=== PATIENT | female | born 1985 | race Hispanic/Latino ===

== ENCOUNTER 2017-10-24 16:56 | Emergency (ER) | payer OTHER, SELFPAY ==
--- NOTE | 2017-10-24 19:01 | RAD REPORT ---
EXAM DESCRIPTION: RAD - Foot Left 3 View - 10/24/2017 5:58 pm CLINICAL HISTORY: Left Foot pain status post injury FINDINGS: A comminuted markedly displaced fracture involves the navicular bone. There is a questiona ble navicular dislocation as well.
--- NOTE | 2017-10-24 21:00 | ER ---
Nurse's Notes [facility] Name: Liya Diop Age: 32 yrs Sex: Female : 1985 Arrival Date: 10/24/2017 Time: 16:59 Bed 18 Private MD: None, None Diagnosis: Fracture of navicular [scaphoid] of foot;Hypoglycemia, unspecified Presentation: 10/24 17:30 Presenting complaint: Patient states: Left foot swelling after rolling ankle 1 week aj ago. Transition of care: patient was not received from another setting of care. Onset of symptoms was October 17, 2017. Risk Assessment: Do you want to hurt yourself or someone else? Patient reports no desire to harm self or others. Initial Sepsis Screen: Does the patient meet any 2 criteria? No. Patient's initial sepsis screen is negative. Does the patient have a suspected source of infection? No. Patient's initial sepsis screen is negative. Care prior to arrival: None. 17:30 Method Of Arrival: Ambulatory aj 17:30 Acuity: SUKHJINDER 4 aj Triage Assessment: 17:32 General: Appears in no apparent distress. comfortable, Behavior is calm, cooperative, aj appropriate for age. Pain: Complains of pain in left foot. Neuro: Level of Consciousness is awake, alert, obeys commands, Oriented to person, place, time, situation, Appropriate for age. Respiratory: Airway is patent Trachea midline Respiratory effort is even, unlabored, Respiratory pattern is regular, symmetrical. Derm: Skin is intact, is healthy with good turgor, Skin is pink, warm \T\ dry. normal. Musculoskeletal: Swelling present in left foot Reports pain in left foot. 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 - Social history:: Smoking status: Patient/guardian denies using tobacco. - Ebola Screening: : Patient negative for fever greater than or equal to 101.5 degrees Fahrenheit, and additional compatible Ebola Virus Disease symptoms Patient denies exposure to infectious person Patient denies travel to an Ebola-affected area in the 21 days before illness onset No symptoms or risks identified at this time. Screenin:13 Abuse screen: Denies threats or abuse. Denies injuries from another. Nutritional aj screening: No deficits noted. Tuberculosis screening: No symptoms or risk factors identified. Fall Risk None identified. Assessment: 19:13 Reassessment: See previous assessment. aj 21:15 Reassessment: Patient appears in no apparent distress at this time. No changes from aj previously documented assessment. Patient and/or family updated on plan of care and expected duration. Pain level reassessed. Patient is alert, oriented x 3, equal unlabored respirations, skin warm/dry/pink. Vital Signs: 17:32 BP 132 / 86; Pulse 99; Resp 17; Temp 98.2; Pulse Ox 99% on R/A; Weight 112.04 kg; aj Height 5 ft. 6 in. (167.64 cm); 20:07 BP 121 / 79; Pulse 87; Resp 20; Pulse Ox 99% on R/A; aj 21:15 BP 129 / 81; Pulse 76; Resp 19; Pulse Ox 99% on R/A; aj 17:32 Body Mass Index 39.87 (112.04 kg, 167.64 cm) aj ED Course: 16:59 Patient arrived in ED. mr 17:00 None, None is Private Physician. mr 17:31 Triage completed. aj 17:32 Arm band placed on left wrist. aj 17:33 Patient placed in waiting room, Patient notified of wait time. X-ray ordered. aj 17:58 XRAY Foot LEFT 3 View In Process Unspecified. EDMS 19:00 Jonny Newton MD is Attending Physician. ps1 19:13 Venus Ramirez, RN is Primary Nurse. aj 20:59 Tato Harris MD is Referral Physician. ps1 21:15 Patient has correct armband on for positive identification. aj 21:15 No provider procedures requiring assistance completed. Patient did not have IV access aj during this emergency room visit. Crutch training done. Orthoglass splint: Posterior short lleg splint applied on Ortho shoe applied to left foot. Administered Medications: No medications were administered Point of Care Testing: Blood Glucose: 20:07 Blood Glucose: 119 mg/dL; aj Ranges: Outcome: 20:59 Discharge ordered by . ps1 21:15 Discharged to home via wheelchair, with crutches, with family. aj 21:15 Condition: good 21:15 Discharge instructions given to patient, family, Instructed on discharge instructions, follow up and referral plans. medication usage, Demonstrated understanding of instructions, follow-up care, medications, Prescriptions given X 3. 21:17 Patient left the ED. aj Signatures: Dispatcher [employer] Venus Mandujano RN RN aj Rivera, Maria mr Singer, Phillip, MD MD ps1
--- NOTE | 2017-10-24 21:01 | EDPHYS ---
Physician Documentation [facility] Name: Liya Diop Age: 32 yrs Sex: Female : 1985 Arrival Date: 10/24/2017 Time: 16:59 Bed 18 Private MD: None, None ED Physician Jonny Newton HPI: 10/24 19:34 This 32 yrs old Female presents to ER via Ambulatory with complaints of Feet ps1 Swelling. 19:34 patient presents with left foot pain and swelling since Monday. She rolled her ankle, ps1 described as an eversion sprain. Has mid foot tenderness. Pain rated as moderate, worse with ambulation. Additionally diabetic and has an open wound on bottom of foot. No surrounding cellulitis. . VERIFICATION LEAD: 17:32 LMP N/A - Irregular menses aj Historical: - Allergies: 17:32 ceftriaxone; aj 17:32 Naproxen; aj - Home Meds: 17:32 Novolin R 100 unit/mL injection soln [Active]; Novolin N 100 unit/mL Sub-Q susp aj [Active]; - PMHx: 17:32 Diabetes - IDDM; aj - PSHx: 17:32 Tubal ligation; Appendectomy; aj - Immunization history:: Adult Immunizations up to date. - Social history:: Smoking status: Patient/guardian denies using tobacco. - Ebola Screening: : Patient negative for fever greater than or equal to 101.5 degrees Fahrenheit, and additional compatible Ebola Virus Disease symptoms Patient denies exposure to infectious person Patient denies travel to an Ebola-affected area in the 21 days before illness onset No symptoms or risks identified at this time. ROS: 19:34 Constitutional: Negative for fever, chills, and weight loss, Eyes: Negative for injury, ps1 pain, redness, and discharge, Cardiovascular: Negative for chest pain, palpitations, and edema, Respiratory: Negative for shortness of breath, cough, wheezing, and pleuritic chest pain, Abdomen/GI: Negative for abdominal pain, nausea, vomiting, diarrhea, and constipation. 19:34 MS/extremity: Positive for pain. 19:34 Skin: Positive for abrasion(s). Exam: 19:34 Constitutional: This is a well developed, well nourished patient who is awake, alert, ps1 and in no acute distress. Head/Face: Normocephalic, atraumatic. Eyes: Pupils equal round and reactive to light, extra-ocular motions intact. Lids and lashes normal. Conjunctiva and sclera are non-icteric and not injected. Chest/axilla: Normal chest wall appearance and motion. Nontender with no deformity. No lesions are appreciated. Cardiovascular: Regular rate and rhythm. No gallops, murmurs, or rubs. Normal PMI, no JVD. No pulse deficits. Respiratory: Lungs have equal breath sounds bilaterally, clear to auscultation and percussion. No rales, rhonchi or wheezes noted. No increased work of breathing, no retractions or nasal flaring. Abdomen/GI: Soft, non-tender, with normal bowel sounds. No distension or tympany. No guarding or rebound. No evidence of tenderness throughout. 19:34 Musculoskeletal/extremity: Extremities: grossly normal except: noted in the left foot: Pain over midfoot/navicular bone. . 19:34 Skin: has small abrasion on the lateral plantar surface of foot. no surrounding cellulitis. generalized swelling and edema. . Vital Signs: 17:32 BP 132 / 86; Pulse 99; Resp 17; Temp 98.2; Pulse Ox 99% on R/A; Weight 112.04 kg; aj Height 5 ft. 6 in. (167.64 cm); 20:07 BP 121 / 79; Pulse 87; Resp 20; Pulse Ox 99% on R/A; aj 21:15 BP 129 / 81; Pulse 76; Resp 19; Pulse Ox 99% on R/A; aj 17:32 Body Mass Index 39.87 (112.04 kg, 167.64 cm) Procedures: 19:34 Splinting: Splint applied to left foot using Orthoglass splint, applied by tech. ps1 Examined by me, post splint application: neurovascular intact, 2+ distal pulses palpable, brisk capillary refill noted, Patient tolerated well. MDM: 19:42 Data reviewed: vital signs, nurses notes, lab test result(s), finger stick glucose. 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 BS is 37. Will give food and drink. place in posterior splint recheck BS. . 19:48 Patient medically screened. ps1 20:53 ED course: BS 119 after food. Patient stable for discharge. Follow up with orthopedics ps1 for navicular fracture. . 10/24 17:34 Order name: XRAY Foot LEFT 3 View; Complete Time: 19:31 aj Administered Medications: No medications were administered Point of Care Testing: Blood Glucose: 20:07 Blood Glucose: 119 mg/dL; aj Ranges: Critical Glucose Levels:Adult <50 mg/dl or >400 mg/dl <40 mg/dl or >180 mg/dl Disposition: 10/24/17 20:59 Discharged to Home. Impression: Fracture of navicular [scaphoid] of foot, Hypoglycemia, unspecified. - Condition is Stable. - Discharge Instructions: Ankle Fracture, Hypoglycemia. - Prescriptions for Tylenol- Codeine #3 300-30 mg Oral Tablet - take 2 tablet by ORAL route every 6 hours As needed; 30 tablet. Zofran 4 mg Oral Tablet - take 1 tablet by ORAL route every 12 hours As needed; 20 tablet. Bactrim DS 800- 160 mg Oral Tablet - take 1 tablet by ORAL route every 12 hours for 10 days; 20 tablet. - Medication Reconciliation Form, Thank You Letter, Antibiotic Education, Prescription Opioid Use form. - Follow up: Tato Harris MD; When: 1 week; Reason: Further diagnostic work-up, Continuance of care. - Problem is new. - Symptoms are unchanged. Signatures: Dispatcher [employer] Venus Mandujano, RN RN Jonny Mccarthy MD MD ps1 Corrections: (The following items were deleted from the chart) 21:17 20:59 10/24/2017 20:59 Discharged to Home. Impression: Fracture of navicular [scaphoid] aj of foot; Hypoglycemia, unspecified. Condition is Stable. Forms are Medication Reconciliation Form, Thank You Letter, Antibiotic Education, Prescription Opioid Use. Follow up: Tato aHrris; When: 1 week; Reason: Further diagnostic work-up, Continuance of care. Problem is new. Symptoms are unchanged. ps1
[2017-10-24 21:32] VITALS: TEMP 98.2; O2SAT 99
[2017-10-24 21:34] VITALS: BP 129/81
== END 2017-10-24 21:17 | disposition home or self-care (01) ==
LOC: ER 16:56
PROC: 2W3RX1Z Immobilization of Left Lower Leg using Splint (ICD-10-PCS; principal; 2017-10-24)
DX: S92.252A Displaced fracture of navicular [scaphoid] of left foot, initial encounter for closed fracture (principal); E11.649 Type 2 diabetes mellitus with hypoglycemia without coma; X58.XXXA Exposure to other specified factors, initial encounter; Y93.89 Activity, other specified; Y92.9 Unspecified place or not applicable; Z79.4 Long term (current) use of insulin; Z88.6 Allergy status to analgesic agent; Z88.8 Allergy status to other drugs, medicaments and biological substances
CPT/HCPCS: 82962; 99283

== ENCOUNTER 2017-10-26 22:36 | Emergency (ER) | payer OTHER, SELFPAY ==
[2017-10-27] MEDS ORDERED: FENTANYL CITR 100 MCG/2 ML ONE (00:45)
[2017-10-27] MEDS ORDERED: ONDANSETRON 4 MG/2 ML VIAL ONE (00:45)
[2017-10-27 01:05] LABS: Absolute Lymphocytes (CBC) 3.3 K/uL (0.7-4.9); Absolute Monocytes 0.7 K/uL (0.1-1.3); Absolute Neutrophil 3.3 K/uL (1.8-8.0); Basophils % 0.6 % (0-1.3); Eosinophils % 3.1 % (0-4.4); Lymphocytes % 43.5 % (15.3-44.8); MCH 28.5 pg (27.0-35.0); MCV 82.6 fL (80-100); MPV 8.5 fL (7.6-11.3); Monocytes % 8.8 % (3.3-12.3); RBC Red Blood Cell Count 4.84 M/uL (3.86-4.86)
[2017-10-27 01:09] LABS: Protime INR 1.07
--- NOTE | 2017-10-27 01:22 | EDPHYS ---
Physician Documentation [facility] Name: Liya Diop Age: 32 yrs Sex: Female : 1985 Arrival Date: 10/26/2017 Time: 22:37 Bed 16 Private MD: ED Physician Julian Cordova HPI: 10/26 23:49 This 32 yrs old Female presents to ER via Ambulatory with complaints of janeen Numbness - left toes/upper foot. 23:49 The patient's problem is reported as paresthesias, in left lower extremity. Onset: The janeen symptoms/episode began/occurred 3 day(s) ago. Duration: The episode is continuous. Context: occurred at a friend's home. The symptoms are alleviated by laying, changing position, The symptoms are aggravated by standing, walking. Associated signs and symptoms: The patient has no apparent associated signs or symptoms. 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 - Social history:: Smoking status: Patient/guardian denies using tobacco, Patient/guardian denies using alcohol, street drugs. - Ebola Screening: : No symptoms or risks identified at this time. - Family history:: not pertinent. ROS: 23:49 Constitutional: Negative for fever, chills, and weight loss, Eyes: Negative for injury, janeen pain, redness, and discharge, ENT: Negative for injury, pain, and discharge, Neck: Negative for injury, pain, and swelling, Cardiovascular: Negative for chest pain, palpitations, and edema, Respiratory: Negative for shortness of breath, cough, wheezing, and pleuritic chest pain, Abdomen/GI: Negative for abdominal pain, nausea, vomiting, diarrhea, and constipation, Back: Negative for injury and pain, : Negative for injury, bleeding, discharge, and swelling, Skin: Negative for injury, rash, and discoloration, Neuro: Negative for headache, weakness, numbness, tingling, and seizure, Psych: Negative for depression, anxiety, suicide ideation, homicidal ideation, and hallucinations, Allergy/Immunology: Negative for hives, rash, and allergies, Endocrine: Negative for neck swelling, polydipsia, polyuria, polyphagia, and marked weight changes, Hematologic/Lymphatic: Negative for swollen nodes, abnormal bleeding, and unusual bruising. 23:49 MS/extremity: Positive for decreased range of motion, pain, swelling, of the left foot and left leg. Exam: 23:49 Constitutional: This is a well developed, well nourished patient who is awake, alert, janeen and in no acute distress. Head/Face: Normocephalic, atraumatic. Eyes: Pupils equal round and reactive to light, extra-ocular motions intact. Lids and lashes normal. Conjunctiva and sclera are non-icteric and not injected. Cornea within normal limits. Periorbital areas with no swelling, redness, or edema. ENT: Nares patent. No nasal discharge, no septal abnormalities noted. Tympanic membranes are normal and external auditory canals are clear. Oropharynx with no redness, swelling, or masses, exudates, or evidence of obstruction, uvula midline. Mucous membranes moist. Neck: Trachea midline, no thyromegaly or masses palpated, and no cervical lymphadenopathy. Supple, full range of motion without nuchal rigidity, or vertebral point tenderness. No Meningismus. Chest/axilla: Normal chest wall appearance and motion. Nontender with no deformity. No lesions are appreciated. Cardiovascular: Regular rate and rhythm with a normal S1 and S2. No gallops, murmurs, or rubs. Normal PMI, no JVD. No pulse deficits. Respiratory: Lungs have equal breath sounds bilaterally, clear to auscultation and percussion. No rales, rhonchi or wheezes noted. No increased work of breathing, no retractions or nasal flaring. Abdomen/GI: Soft, non-tender, with normal bowel sounds. No distension or tympany. No guarding or rebound. No evidence of tenderness throughout. Back: No spinal tenderness. No costovertebral tenderness. Full range of motion. Skin: Warm, dry with normal turgor. Normal color with no rashes, no lesions, and no evidence of cellulitis. Neuro: Awake and alert, GCS 15, oriented to person, place, time, and situation. Cranial nerves II-XII grossly intact. Motor strength 5/5 in all extremities. Sensory grossly intact. Cerebellar exam normal. Normal gait. Psych: Awake, alert, with orientation to person, place and time. Behavior, mood, and affect are within normal limits. 23:49 Musculoskeletal/extremity: Circulation is intact in all extremities. Sensation intact. Compartment Syndrome exam of affected extremity: is normal. DVT Exam: negative Homans' sign noted on exam, no appreciated bluish discoloration, no erythema, no increased warmth, pain, swelling, tenderness. Vital Signs: 22:55 BP 135 / 63; Pulse 95; Resp 16 S; Temp 98.9(O); Pulse Ox 98% on R/A; Weight 113.4 kg bb (R); Height 5 ft. 6 in. (167.64 cm) (R); Pain 06/24; 10/27 00:30 BP 124 / 72; Pulse 99; Resp 14; Pulse Ox 98% ; bp 00:50 BP 133 / 71; Pulse 97; Resp 14; Pulse Ox 97% ; bp 01:30 BP 127 / 65; Pulse 95; Resp 15; Pulse Ox 97% ; bp 10/26 22:55 Body Mass Index 40.35 (113.40 kg, 167.64 cm) bb MDM: 10/26 22:51 Patient medically screened. [facility] 23:52 Data reviewed: vital signs, nurses notes, lab test result(s), EKG, radiologic studies, janeen plain films. 10/26 23:48 Order name: Basic Metabolic Panel; Complete Time: 01:51 [facility] 10/26 23:48 Order name: CBC with Diff; Complete Time: 01: [facility] 10/26 23:48 Order name: Ckmb; Complete Time: 01:51 [facility] 10/26 23:48 Order name: CPK; Complete Time: 01:51 [facility] 10/26 23:48 Order name: LFT's; Complete Time: 01:51 [facility] 10/26 23:48 Order name: Magnesium; Complete Time: :51 [facility] 10/26 23:48 Order name: NT PRO-BNP; Complete Time: 01:51 [facility] 10/26 23:48 Order name: PT-INR; Complete Time: 01:21 [facility] 10/26 23:48 Order name: Ptt, Activated; Complete Time: 01:21 [facility] 10/26 23:48 Order name: Troponin (emerg Dept Use Only); Complete Time: 01:51 [facility] 10/26 23:48 Order name: XRAY Chest (1 view) [facility] 10/26 23:48 Order name: Lipase; Complete Time: 01:51 [facility] 10/27 00:50 Order name: Urine Dipstick--Ancillary (enter results); Complete Time: 01:[address] [facility] 10/27 00:50 Order name: Urine --Ancillary (enter results); Complete Time: 01:[address] [facility] 10/26 23:48 Order name: Urine Test (obtain specimen); Complete Time: 00:47 [facility] 10/26 23:48 Order name: Cardiac monitoring; Complete Time: 00:47 [facility] 10/26 23:48 Order name: EKG - Nurse/Tech; Complete Time: 00:47 [facility] 10/26 23:48 Order name: IV Saline Lock; Complete Time: 00:47 [facility] 10/26 23:48 Order name: Labs collected and sent; Complete Time: 00:47 [facility] 10/26 23:48 Order name: O2 Per Protocol; Complete Time: 00:47 [facility] 10/26 23:48 Order name: O2 Sat Monitoring; Complete Time: 00:47 [facility] 10/26 23:48 Order name: Urine Dipstick-Ancillary (obtain specimen); Complete Time: 00:47 [facility] 10/26 23:48 Order name: US Extremity Venous W Compression Suleman [facility] 10/26 23:49 Order name: Foot Left 3 View XRAY janeen Administered Medications: 10/27 00:48 Drug: fentaNYL (PF) 25 mcg Route: IVP; Site: left antecubital; bp 01:08 Follow up: Response: Pain is decreased bp 00:48 Drug: fentaNYL (PF) 25 mcg Route: IVP; Site: left antecubital; bp 01:07 Follow up: Response: Pain is decreased bp 00:49 Drug: Zofran 4 mg Route: IVP; Site: left antecubital; bp 01:07 Follow up: Response: Nausea is decreased bp 01:31 Drug: Cipro 500 mg Route: PO; bp 01:33 Follow up: Response: No adverse reaction bp 02:16 Drug: Potassium Chloride 40 mEq Route: PO; bp 02:16 Follow up: Response: Medication administered at discharge. bp Disposition: 10/27/17 01:21 Discharged to Home. Impression: Displaced fracture of navicular [scaphoid] of left foot, Type 1 diabetes mellitus, Cystitis, Hypokalemia. - Condition is Fair. - Discharge Instructions: Type 1 Diabetes Mellitus, Adult, Potassium Content of Foods, Tarsal Navicular Fracture, Hypokalemia. - Prescriptions for Tylenol- Codeine #3 300-30 mg Oral Tablet - take 2 tablet by ORAL route every 6 hours As needed; 30 tablet. Cipro 500 mg Oral Tablet - take 1 tablet by ORAL route every 12 hours for 7 days; 14 tablet. - Medication Reconciliation Form, Thank You Letter, Antibiotic Education, Prescription Opioid Use form. - Follow up: Tato Harris; When: Today; Reason: Recheck today's complaints, Re-evaluation by your physician. - Problem is new. - Symptoms have improved. Signatures: Dispatcher [employer] EDMS Julian Cordova MD MD cha Ballard, Brenda, RN RN Karel James RN RN bp Corrections: (The following items were deleted from the chart) 01:52 01:21 10/27/2017 01:21 Discharged to Home. Impression: Displaced fracture of navicular janeen [scaphoid] of left foot; Type 1 diabetes mellitus; Cystitis. Condition is Fair. Discharge Instructions: Tarsal Navicular Fracture, Type 1 Diabetes Mellitus, Adult. Prescriptions for Tylenol-Codeine #3 300-30 mg Oral Tablet - take 2 tablet by ORAL route every 6 hours As needed; 30 tablet. and Forms are Medication Reconciliation Form, Thank You Letter, Antibiotic Education, Prescription Opioid Use. Follow up: Tato Harris; When: Today; Reason: Recheck today's complaints, Re-evaluation by your physician. Problem is new. Symptoms have improved. [facility] 02:19 01:52 10/27/2017 01:21 Discharged to Home. Impression: Displaced fracture of navicular bp [scaphoid] of left foot; Type 1 diabetes mellitus; Cystitis; Hypokalemia. Condition is Fair. Discharge Instructions: Tarsal Navicular Fracture, Type 1 Diabetes Mellitus, Adult. Prescriptions for Tylenol-Codeine #3 300-30 mg Oral Tablet - take 2 tablet by ORAL route every 6 hours As needed; 30 tablet, Cipro 500 mg Oral Tablet - take 1 tablet by ORAL route every 12 hours for 7 days; 14 tablet. and Forms are Medication Reconciliation Form, Thank You Letter, Antibiotic Education, Prescription Opioid Use. Follow up: Tato Harris; When: Today; Reason: Recheck today's complaints, Re-evaluation by your physician. Problem is new. Symptoms have improved. janeen
--- NOTE | 2017-10-27 01:22 | ER ---
Nurse's Notes [facility] Name: Liya Diop Age: 32 yrs Sex: Female : 1985 Arrival Date: 10/26/2017 Time: 22:37 Bed 16 Private MD: Diagnosis: Displaced fracture of navicular [scaphoid] of left foot;Type 1 diabetes mellitus;Cystitis;Hypokalemia Presentation: 10/26 22:52 Presenting complaint: Patient states: she was seen here on Monday and with a bb navicular fracture to her left foot and today she noticed she is having numbness to her big toe and the top of her foot pt is diabetic and is concerned about the numbness. Transition of care: patient was not received from another setting of care. Onset of symptoms was October 26, 2017. Risk Assessment: Do you want to hurt yourself or someone else? Patient reports no desire to harm self or others. Initial Sepsis Screen: Does the patient meet any 2 criteria? No. Patient's initial sepsis screen is negative. Does the patient have a suspected source of infection? No. Patient's initial sepsis screen is negative. Care prior to arrival: None. 22:52 Method Of Arrival: Ambulatory bb 22:52 Acuity: SUKHJINDER 4 bb Triage Assessment: 10/27 01:30 General: Appears in no apparent distress. comfortable, obese, Behavior is calm, bp cooperative, appropriate for age. 01:30 Pain: Complains of pain in left foot. 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 - Social history:: Smoking status: Patient/guardian denies using tobacco, Patient/guardian denies using alcohol, street drugs. - Ebola Screening: : No symptoms or risks identified at this time. - Family history:: not pertinent. Screenin:00 Abuse screen: Denies threats or abuse. Denies injuries from another. Nutritional bp screening: No deficits noted. Tuberculosis screening: No symptoms or risk factors identified. Fall Risk None identified. Assessment: 23:00 General: SEE TRIAGE NOTE. ORTHO BOOT IN PLACE ON LEFT. bp 23:45 Reassessment: PT TO RADIOLOGY. bp 10/27 00:30 Reassessment: PT RETURNED FROM RADIOLOGY. bp 01:31 Reassessment: D/C ON HOLD FOR REMAINING LAB RESULTS. VS STABLE ON MONITOR. bp Vital Signs: 10/26 22:55 BP 135 / 63; Pulse 95; Resp 16 S; Temp 98.9(O); Pulse Ox 98% on R/A; Weight 113.4 kg bb (R); Height 5 ft. 6 in. (167.64 cm) (R); Pain 3/10; 10/27 00:30 BP 124 / 72; Pulse 99; Resp 14; Pulse Ox 98% ; bp 00:50 BP 133 / 71; Pulse 97; Resp 14; Pulse Ox 97% ; bp 01:30 BP 127 / 65; Pulse 95; Resp 15; Pulse Ox 97% ; bp 10/26 22:55 Body Mass Index 40.35 (113.40 kg, 167.64 cm) bb ED Course: 10/26 22:37 Patient arrived in ED. am2 22:49 Karel Montes, RN is Primary Nurse. bp 22:51 Julian Cordova MD is Attending Physician. janeen 22:54 Triage completed. bb 22:55 Arm band placed on Patient placed in an exam room, on a stretcher. Family accompanied bb patient. 23:00 Patient has correct armband on for positive identification. Bed in low position. Call bp light in reach. Side rails up X2. Adult w/ patient. 10/27 00:02 Patient moved to radiology via wheelchair. tm4 00:06 X-ray completed. Patient tolerated procedure well. tm4 00:08 Patient moved back from ultrasound. tm4 00:09 XRAY Chest (1 view) In Process Unspecified. EDMS 00:09 Foot Left 3 View XRAY In Process Unspecified. EDMS 00:45 US Extremity Venous W Compression Suleman In Process Unspecified. EDMS 00:47 Initial lab(s) drawn, by me, sent to lab. Inserted saline lock: 22 gauge in left ks6 antecubital area, using aseptic technique. Blood collected. 01:21 Tato Harris MD is Referral Physician. janeen 02:16 No provider procedures requiring assistance completed. IV discontinued, intact, bp bleeding controlled, No redness/swelling at site. Pressure dressing applied. 02:16 Orthoglass splint: Posterior short lleg splint applied on left leg. 4" Orthoglass used ks6 for splinting. Two new bandages to secure splint. CMS present after splinting. Administered Medications: 00:48 Drug: fentaNYL (PF) 25 mcg Route: IVP; Site: left antecubital; bp 01:08 Follow up: Response: Pain is decreased bp 00:48 Drug: fentaNYL (PF) 25 mcg Route: IVP; Site: left antecubital; bp 01:07 Follow up: Response: Pain is decreased bp 00:49 Drug: Zofran 4 mg Route: IVP; Site: left antecubital; bp 01:07 Follow up: Response: Nausea is decreased bp 01:31 Drug: Cipro 500 mg Route: PO; bp 01:33 Follow up: Response: No adverse reaction bp 02:16 Drug: Potassium Chloride 40 mEq Route: PO; bp 02:16 Follow up: Response: Medication administered at discharge. bp Outcome: 01:21 Discharge ordered by . janeen 02:17 Discharged to home via wheelchair, with family. bp 02:17 Condition: stable 02:17 Discharge instructions given to patient, Instructed on discharge instructions, follow up and referral plans. medication usage, Demonstrated understanding of instructions, follow-up care, medications, Prescriptions given X 2. 02:19 Patient left the ED. bp Signatures: Dispatcher [employer] EDJulian Shrestha MD MD cha Marroquin, Tracy tm4 Erendira Naik RN RN Venus Owens am2 Karel Montes RN RN bp Stevenson, Kyle ks6
[2017-10-27] MEDS ORDERED: CIPROFLOXACIN HCL 500 MG TAB ONE (01:31)
[2017-10-27 01:38] LABS: ALT/SGPT 40 U/L (12-78); AST/SGOT 33 U/L (15-37); Albumin 3.4 g/dL (3.4-5.0); Alkaline Phosphatase 95 U/L (45-117); BUN Blood Urea Nitrogen 10 mg/dL (7-18); Bicarbonate 33 mmol/L (21-32); Bilirubin Direct < 0.1 mg/dL (0-0.2); Bilirubin Total 0.3 mg/dL (0.2-1.0); CKMB Creatine Kinase MB < 1.0 ng/mL (0.3-3.6); Creatine Phosphokinase 45 U/L (26-192); Glucose Level 146 mg/dL (74-106); Lipase 132 U/L (73-393); Magnesium 1.8 mg/dL (1.8-2.4); NT PRO-BNP 82 pg/mL (<125); Potassium 3.3 mmol/L (3.5-5.1); Protein, Total 8.1 g/dL (6.4-8.2); Sodium Level 143 mmol/L (136-145)
[2017-10-27 01:41] LABS: Urine Blood NEGATIVE (NEG); Urine Glucose 2+ (NEG); Urine Protein NEGATIVE (NEG)
[2017-10-27] MEDS ORDERED: POTASSIUM 25 MEQ EFFERV TAB ONE (02:14)
[2017-10-27 02:33] VITALS: TEMP 98.9
[2017-10-27 02:44] VITALS: O2SAT 97
[2017-10-27 02:45] VITALS: BP 127/65
--- NOTE | 2017-10-27 08:17 | RAD REPORT ---
EXAM DESCRIPTION: RAD - Chest Single View - 10/27/2017 12:10 am CLINICAL HISTORY: SWELLING Chest pain. COMPARISON: Chest Pa And Lat (2 Views) dated 06/26/2017; Chest Pa And Lat (2 Views) dated 05/22/2017; C HEST SINGLE VIEW dated 01/20/2008; CHEST PA AND LAT 2 VIEW dated 07/24/2007 FINDINGS: Portable technique limits examination quality. The lungs are grossly clear. The heart is normal in size. No displaced fractures. IMPRESSION: No acute intrathoracic process suspected.
--- NOTE | 2017-10-27 08:19 | RAD REPORT ---
EXAM DESCRIPTION: RAD - Foot Left 3 View - 10/27/2017 12:10 am CLINICAL HISTORY: PAIN COMPARISON: Foot Left 3 View dated 10/24/2017; Foot Left 3 View dated 05/29/2013 FINDINGS: Again noted is comminuted fracture of the navicular, unchanged. Moderate soft tissue swell ing is seen, greatest in the forefoot. Small posterior calcaneal spur seen.
--- NOTE | 2017-10-27 08:19 | RAD REPORT ---
EXAM DESCRIPTION: VAS - Extrem Venous W Compress Suleman - 10/27/2017 12:45 am CLINICAL HISTORY: Pain;Swelling Bilateral leg edema and swelling. COMPARISON: EXT VENOUS W COMPRESSION SULEMAN dated 05/27/2015 TECHNIQUE: Real-time sonographic interrogation of the left and right lower extremity deep venous sys tems was performed. FINDINGS: Normal compressibility, flow augmentation, phasic flow and spontaneous flow is identified in both the left and right lower extremity deep venous systems. IMPRESSION: No sonographic evidence of left or right lower extremity deep venous thrombosis.
--- NOTE | 2017-10-28 10:32 | EKG ---
Test Date: 2017-10-27 Test Time: 00:54:22 Security System Technician: REINA MEASUREMENT RESULTS: Intervals: Rate: 95 GA: 144 QRSD: 96 QT: 374 QTc: 469 [place]dorf: P: 22 GA: 144 QRS: 8 T: 14 INTERPRETIVE STATEMENTS: Normal sinus rhythm Normal ECG Compared to ECG 05/22/2017 08:09:28 No significant changes Electronically Signed On 10-28-17 10:27:41 CDT by Ramos Ashton
== END 2017-10-27 02:19 | disposition home or self-care (01) ==
LOC: ER 22:36
DX: S92.252A Displaced fracture of navicular [scaphoid] of left foot, initial encounter for closed fracture (principal); N30.90 Cystitis, unspecified without hematuria; E87.6 Hypokalemia; E11.9 Type 2 diabetes mellitus without complications; X58.XXXA Exposure to other specified factors, initial encounter; Y93.9 Activity, unspecified; Y92.89 Other specified places as the place of occurrence of the external cause; Z79.4 Long term (current) use of insulin; Z88.6 Allergy status to analgesic agent; Z88.8 Allergy status to other drugs, medicaments and biological substances
CPT/HCPCS: 36415; 71045; 80048; 80076; 81003; 81025; 82550; 82553; 83690; 83735; 83880; 84484; 85025; 85610; 85730; 93005; 93970; 96374; 96375; 99284; J2405; J3010

== ENCOUNTER 2018-07-16 16:20 | Emergency (ER) | payer MEDICAID, OTHER ==
--- NOTE | 2018-07-16 17:23 | RAD REPORT ---
EXAM DESCRIPTION: RAD - Chest Pa And Lat (2 Views) - 07/16/2018 5:10 pm CLINICAL HISTORY: COUGH Chest pain. COMPARISON: Chest Single View dated 10/26/2017; Chest Pa And Lat (2 Views) dated 06/26/2017; Chest Pa And Lat (2 Views) dated 05/22/2017; CHEST SINGLE VIEW dated 01/20/2008 FINDINGS: The lungs are clear. The heart is normal in size. No displaced fractures. IMPRESSION: No acute or concerning finding suspected.
[2018-07-16] MEDS ORDERED: NA CHLORIDE 0.9% 1,000 ML ONE ×2 (17:50→19:55)
[2018-07-16 18:01] LABS: Absolute Lymphocytes (CBC) 2.9 K/uL (0.7-4.9); Absolute Monocytes 0.7 K/uL (0.1-1.3); Absolute Neutrophil 4.3 K/uL (1.8-8.0); Basophils % 0.7 % (0-1.3); Eosinophils % 2.8 % (0-4.4); Hematocrit 41.9 % (36.0-45.0); Lymphocytes % 35.4 % (15.3-44.8); MPV 8.7 fL (7.6-11.3); Monocytes % 8.2 % (3.3-12.3); RBC Red Blood Cell Count 5.11 M/uL (3.86-4.86)
[2018-07-16 18:29] LABS: Protime INR 1.05
[2018-07-16 18:35] LABS: ALT/SGPT 25 U/L (12-78); AST/SGOT 17 U/L (15-37); Albumin 3.2 g/dL (3.4-5.0); Alkaline Phosphatase 115 U/L (45-117); BUN Blood Urea Nitrogen 21 mg/dL (7-18); Bicarbonate 25 mmol/L (21-32); Bilirubin Direct < 0.1 mg/dL (0-0.2); Bilirubin Total 0.3 mg/dL (0.2-1.0); Glucose Level 394 mg/dL (74-106); Magnesium 1.9 mg/dL (1.8-2.4); NT PRO-BNP 29 pg/mL (<125); Potassium 4.3 mmol/L (3.5-5.1); Protein, Total 7.9 g/dL (6.4-8.2); Sodium Level 134 mmol/L (136-145); Troponin (Emerg Dept Use Only) < 0.02 ng/mL (0.0-0.045)
--- NOTE | 2018-07-16 19:14 | RAD REPORT ---
EXAM DESCRIPTION: US - Extrem Venous W Compress Suleman - 07/16/2018 7:07 pm CLINICAL HISTORY: Pain;Swelling Bilateral leg edema and swelling. COMPARISON: Extrem Venous W Compress Suleman dated 10/27/2017 TECHNIQUE: Real-time sonographic interrogation of the left and right lower extremity deep venous sys tems was performed. FINDINGS: Normal compressibility, flow augmentation, phasic flow and spontaneous flow is identified in both the left and right lower extremity deep venous systems. IMPRESSION: No sonographic evidence of left or right lower extremity deep venous thrombosis.
--- NOTE | 2018-07-16 19:40 | RAD REPORT ---
EXAM DESCRIPTION: CT - Chest For Pe Angio - 07/16/2018 7:32 pm CLINICAL HISTORY: Chest pain. CHEST PAIN COMPARISON: Thorax Wo Con dated 06/26/2017 TECHNIQUE: CT angiogram of the pulmonary arteries was performed with MIP. All CT scans are performed using dose optimization technique as appropriate and may include automated exposure control or mA/KV adjustment according to patient size. FINDINGS: No evidence of pulmonary thromboembolism. No acute aortic finding demonstrated. The lungs are clear. No significant pericardial or pleural fluid. No concerning bony finding. IMPRESSION: No evidence of pulmonary thromboembolism. No acute lung findings.
--- NOTE | 2018-07-16 19:46 | EDPHYS ---
Physician Documentation [facility] Name: Liya Diop Age: 33 yrs Sex: Female : 1985 Arrival Date: 07/16/2018 Time: 16:24 Bed 28 Private MD: None, None ED Physician Julian Cordova HPI: 07/16 17:13 This 33 yrs old Female presents to ER via Ambulatory with complaints of Cough, janeen Chest Pain. 17:13 The patient or guardian reports cough, difficulty breathing. Onset: The janeen symptoms/episode began/occurred 2 day(s) ago. Severity of symptoms: At their worst the symptoms were mild. Modifying factors: The symptoms are alleviated by nothing, the symptoms are aggravated by nothing. Associated signs and symptoms: The patient has no apparent associated signs or symptoms. The patient has not experienced similar symptoms in the past. 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 - Social history:: Smoking status: Patient/guardian denies using tobacco. - Ebola Screening: : No symptoms or risks identified at this time. - Family history:: not pertinent. ROS: 17:13 Constitutional: Negative for fever, chills, and weight loss, Eyes: Negative for injury, janeen pain, redness, and discharge, ENT: Negative for injury, pain, and discharge, Neck: Negative for injury, pain, and swelling, Cardiovascular: Negative for chest pain, palpitations, and edema, Abdomen/GI: Negative for abdominal pain, nausea, vomiting, diarrhea, and constipation, Back: Negative for injury and pain, : Negative for injury, bleeding, discharge, and swelling, MS/Extremity: Negative for injury and deformity, Skin: Negative for injury, rash, and discoloration, Neuro: Negative for headache, weakness, numbness, tingling, and seizure, Psych: Negative for depression, anxiety, suicide ideation, homicidal ideation, and hallucinations, Allergy/Immunology: Negative for hives, rash, and allergies, Endocrine: Negative for neck swelling, polydipsia, polyuria, polyphagia, and marked weight changes, Hematologic/Lymphatic: Negative for swollen nodes, abnormal bleeding, and unusual bruising. 17:13 Respiratory: Positive for cough, pleurisy, of the right lateral posterior chest, right lateral anterior chest and right breast, shortness of breath, on exertion. Exam: 17:13 Constitutional: This is a well developed, well nourished patient who is awake, alert, janeen and in no acute distress. Head/Face: Normocephalic, atraumatic. Eyes: Pupils equal round and reactive to light, extra-ocular motions intact. Lids and lashes normal. Conjunctiva and sclera are non-icteric and not injected. Cornea within normal limits. Periorbital areas with no swelling, redness, or edema. ENT: Nares patent. No nasal discharge, no septal abnormalities noted. Tympanic membranes are normal and external auditory canals are clear. Oropharynx with no redness, swelling, or masses, exudates, or evidence of obstruction, uvula midline. Mucous membranes moist. Neck: Trachea midline, no thyromegaly or masses palpated, and no cervical lymphadenopathy. Supple, full range of motion without nuchal rigidity, or vertebral point tenderness. No Meningismus. Chest/axilla: Normal chest wall appearance and motion. Nontender with no deformity. No lesions are appreciated. Cardiovascular: Regular rate and rhythm with a normal S1 and S2. No gallops, murmurs, or rubs. Normal PMI, no JVD. No pulse deficits. Respiratory: Lungs have equal breath sounds bilaterally, clear to auscultation and percussion. No rales, rhonchi or wheezes noted. No increased work of breathing, no retractions or nasal flaring. Abdomen/GI: Soft, non-tender, with normal bowel sounds. No distension or tympany. No guarding or rebound. No evidence of tenderness throughout. Back: No spinal tenderness. No costovertebral tenderness. Full range of motion. Skin: Warm, dry with normal turgor. Normal color with no rashes, no lesions, and no evidence of cellulitis. MS/ Extremity: Pulses equal, no cyanosis. Neurovascular intact. Full, normal range of motion. Neuro: Awake and alert, GCS 15, oriented to person, place, time, and situation. Cranial nerves II-XII grossly intact. Motor strength 5/5 in all extremities. Sensory grossly intact. Cerebellar exam normal. Normal gait. Psych: Awake, alert, with orientation to person, place and time. Behavior, mood, and affect are within normal limits. 17:54 Musculoskeletal/extremity: ROM: intact in all extremities, full active range of motion, janeen full passive range of motion, Circulation is intact in all extremities. Pulses: Sensation intact. Compartment Syndrome exam of affected extremity: is normal. DVT Exam: negative Homans' sign noted on exam, no appreciated bluish discoloration, no erythema, no increased warmth, pain, swelling, tenderness, that is mild, that is moderate, of the left leg, of the lateral aspect of left calf, left lateral ankle, lateral aspect of left foot, medial aspect of left calf, left medial ankle, medial aspect of left foot, left reyes, anterior aspect of left ankle and dorsum of left foot. Vital Signs: 16:26 BP 140 / 88; Pulse 94; Resp 22; Temp 97.9; Pulse Ox 98% ; Weight 117.93 kg; Height 5 sv ft. 6 in. (167.64 cm); Pain 3/10; 17:50 BP 115 / 71; Pulse 92; Resp 19; Pulse Ox 100% on R/A; ca1 18:30 BP 121 / 74; Pulse 91; Resp 19; Pulse Ox 100% on R/A; ca1 19:52 BP 138 / 87; Pulse 92; Resp 19; Pulse Ox 100% ; ca1 20:30 BP 110 / 70; Pulse 94; Resp 19; Pulse Ox 100% on R/A; ca1 16:26 Body Mass Index 41.96 (117.93 kg, 167.64 cm) sv MDM: 16:48 Patient medically screened. [facility] 17:15 Data reviewed: vital signs, nurses notes, lab test result(s), EKG, radiologic studies, [facility] CT scan, plain films. 07/16 17:12 Order name: Basic Metabolic Panel; Complete Time: 18:43 janeen 07/16 17:12 Order name: CBC with Diff; Complete Time: 18:31 [facility] 07/16 17:12 Order name: LFT's; Complete Time: 18:43 [facility] 07/16 17:12 Order name: Magnesium; Complete Time: 18:43 [facility] 07/16 17:12 Order name: NT PRO-BNP; Complete Time: 18:43 janeen 07/16 17:12 Order name: PT-INR; Complete Time: 18:43 janeen 07/16 16:49 Order name: Chest Pa And Lat (2 Views) XRAY; Complete Time: 18:31 janeen 07/16 17:12 Order name: Troponin (emerg Dept Use Only); Complete Time: 18:43 janeen 07/16 17:12 Order name: CT Chest For PE Angio; Complete Time: 19:45 janeen 07/16 17:17 Order name: Urine Dipstick--Ancillary (enter results) bd 07/16 17:24 Order name: Urine --Ancillary (enter results) bd 07/16 17:53 Order name: US Extremity Venous W Compression Suleman; Complete Time: 19:24 janeen 07/16 20:30 Order name: Glucose, Ancillary Testing EDMS 07/16 16:28 Order name: EKG; Complete Time: 16:29 sv 07/16 16:28 Order name: EKG - Nurse/Tech; Complete Time: 16:35 sv 07/16 16:49 Order name: Urine Dipstick-Ancillary (obtain specimen); Complete Time: 17:14 janeen 07/16 16:49 Order name: Urine Test (obtain specimen); Complete Time: 17:14 janeen 07/16 17:12 Order name: Cardiac monitoring; Complete Time: 18:04 janeen 07/16 17:12 Order name: IV Saline Lock; Complete Time: 18:04 janeen 07/16 17:12 Order name: Labs collected and sent; Complete Time: 18:04 janeen 07/16 17:12 Order name: O2 Per Protocol; Complete Time: 18:04 janeen 07/16 17:12 Order name: O2 Sat Monitoring; Complete Time: 18:04 janeen Administered Medications: 17:58 Drug: NS 0.9% 1000 ml Route: IV; Rate: 1 bolus; Site: left antecubital; ca1 19:45 Follow up: Response: No adverse reaction; IV Status: Completed infusion ca1 19:46 Drug: NS 0.9% 1000 ml Route: IV; Rate: 1 bolus; Site: left antecubital; ca1 20:40 Follow up: Response: No adverse reaction; IV Status: Completed infusion ca1 19:47 Drug: Insulin Regular Human 10 units {Co-Signature: mg2 (Hugo Mcleod RN).} Route: ca1 IVP; Site: left antecubital; 20:30 Follow up: Response: No adverse reaction; Other; BG decreased ca1 Disposition: 07/16/18 19:45 Discharged to Home. Impression: Chest pain, unspecified, Cough, Type 1 diabetes mellitus. - Condition is Stable. - Discharge Instructions: Nonspecific Chest Pain, Chest Wall Pain, Type 1 Diabetes Mellitus, Diagnosis, Adult, Nonspecific Chest Pain, [id number], Cough, Adult, [id number], Aspirin and Your Heart, Cough, Adult, Type 1 Diabetes Mellitus, Self Care, Adult, Type 1 Diabetes Mellitus, Diagnosis, Adult, [id number]. - Prescriptions for Tylenol- Codeine #3 300-30 mg Oral Tablet - take 2 tablets by ORAL route every 6 hours As needed; 26 tablet. Zithromax Z- Sergey 250 mg Oral Tablet - take 1 tablet by ORAL route as directed for 5 days Day 1 - take two (2) tablets one time. Day 2, 3, 4 , 5 take one (1) tablet once daily.; 6 tablet. - Medication Reconciliation Form, Thank You Letter, Antibiotic Education, Prescription Opioid Use form. - Follow up: Private Physician; When: 2 - 3 days; Reason: Recheck today's complaints, Continuance of care, Re-evaluation by your physician. - Problem is new. - Symptoms have improved. Signatures: Dispatcher [employer] Karin Hayes RN RN sv Anderson, Corey, MD MD cha Acob, Cheryl, RN RN ca1 Hugo Mcleod RN mg2 Corrections: (The following items were deleted from the chart) 16:43 14:32 Immunization history: Flu vaccine is not up to date. ca1 ca1 16:43 14:32 Social history: Smoking status: Patient/guardian denies using tobacco, ca1 ca1 17:55 17:13 Musculoskeletal/extremity: DVT Exam: No signs of deep vein thrombosis. no pain, janeen no swelling, no tenderness, negative Homans' sign noted on exam, no appreciated bluish discoloration, no erythema, no increased warmth, [facility] 20:43 19:45 07/16/2018 19:45 Discharged to Home. Impression: Chest pain, unspecified; Cough; ca1 Type 1 diabetes mellitus. Condition is Stable. Discharge Instructions: Nonspecific Chest Pain, Chest Wall Pain, Nonspecific Chest Pain, [id number], Cough, Adult, [id number], Aspirin and Your Heart, Cough, Adult, Type 1 Diabetes Mellitus, Diagnosis, Adult, Type 1 Diabetes Mellitus, Self Care, Adult, Type 1 Diabetes Mellitus, Diagnosis, Adult, [id number]. Prescriptions for Tylenol-Codeine #3 300-30 mg Oral Tablet - take 2 tablets by ORAL route every 6 hours As needed; 26 tablet, Zithromax Z-Sergey 250 mg Oral Tablet - take 1 tablet by ORAL route as directed for 5 days Day 1 - take two (2) tablets one time. Day 2, 3, 4 , 5 take one (1) tablet once daily.; 6 tablet. and Forms are Medication Reconciliation Form, Thank You Letter, Antibiotic Education, Prescription Opioid Use. Follow up: Private Physician; When: 2 - 3 days; Reason: Recheck today's complaints, Continuance of care, Re-evaluation by your physician. Problem is new. Symptoms have improved. janeen
--- NOTE | 2018-07-16 19:46 | ER ---
Nurse's Notes [facility] Name: Liya Diop Age: 33 yrs Sex: Female : 1985 Arrival Date: 07/16/2018 Time: 16:24 Bed 28 Private MD: None, None Diagnosis: Chest pain, unspecified;Cough;Type 1 diabetes mellitus Presentation: 07/16 16:25 Presenting complaint: Patient states: midsternal chest pain and worsens with coughing, sv deep breathing and now it radiates to the back. Cough has been going out for a couple of weeks and blood sugars have been up and down. Transition of care: patient was not received from another setting of care. Onset of symptoms is unknown. Care prior to arrival: None. 16:25 Method Of Arrival: Ambulatory sv 16:25 Acuity: SUKHJINDER 3 sv 16:45 Risk Assessment: Do you want to hurt yourself or someone else? Patient reports no ca1 desire to harm self or others. Initial Sepsis Screen: Does the patient meet any 2 criteria? No. Patient's initial sepsis screen is negative. Does the patient have a suspected source of infection? No. Patient's initial sepsis screen is negative. CHILD CARE: 16:45 LMP N/A - Post-menopause ca1 Historical: - Allergies: 16:26 ceftriaxone; sv 16:26 Naproxen; sv - Home Meds: 16:26 Novolin N 100 unit/mL Sub-Q susp [Active]; Novolin R 100 unit/mL injection soln sv [Active]; - PMHx: 16:26 Diabetes - IDDM; sv - Immunization history:: Flu vaccine is not up to date. - Social history:: Smoking status: Patient/guardian denies using tobacco. - Ebola Screening: : No symptoms or risks identified at this time. - Family history:: not pertinent. Screenin:32 Abuse screen: Denies threats or abuse. Denies injuries from another. Nutritional ca1 screening: No deficits noted. Tuberculosis screening: No symptoms or risk factors identified. Fall Risk None identified. Assessment: 16:32 Reassessment:. General: Appears in no apparent distress. comfortable, Behavior is calm, ca1 cooperative, appropriate for age. Pain: Pain radiates to back Pain currently is 5 out of 10 on a pain scale. Pain began few days ago. Neuro: Level of Consciousness is awake, alert, obeys commands, Oriented to person, place, time, situation. Cardiovascular: Heart tones S1 S2 present Capillary refill < 3 seconds Patient's skin is warm and dry. Respiratory: Airway is patent Respiratory effort is even, unlabored, Respiratory pattern is regular, symmetrical, Breath sounds are clear bilaterally. GI: Abdomen is round non-distended, Bowel sounds present X 4 quads. Abd is soft and non tender X 4 quads. : No deficits noted. No signs and/or symptoms were reported regarding the genitourinary system. EENT: No deficits noted. No signs and/or symptoms were reported regarding the EENT system. Derm: Skin is intact, is healthy with good turgor, Skin is pink, warm \T\ dry. Musculoskeletal: Circulation, motion, and sensation intact. Capillary refill < 3 seconds. 17:40 Reassessment: Patient appears in no apparent distress at this time. Patient and/or ca1 family updated on plan of care and expected duration. Pain level reassessed. Patient is alert, oriented x 3, equal unlabored respirations, skin warm/dry/pink. Dr. Cordova at bedside to discuss plan of care. 18:30 Reassessment: Patient appears in no apparent distress at this time. Patient and/or ca1 family updated on plan of care and expected duration. Pain level reassessed. Patient is alert, oriented x 3, equal unlabored respirations, skin warm/dry/pink. 19:00 Reassessment: Pt to CT scan. ca1 19:45 Reassessment: Patient appears in no apparent distress at this time. Patient is alert, ca1 oriented x 3, equal unlabored respirations, skin warm/dry/pink. Pt back from US and CT scan. 19:48 Reassessment: Pt just received insulin IVP, will re-check blood sugar in 30mins. ca1 20:30 Reassessment: Patient appears in no apparent distress at this time. Patient is alert, ca1 oriented x 3, equal unlabored respirations, skin warm/dry/pink. FBSG 285. Vital Signs: 16:26 BP 140 / 88; Pulse 94; Resp 22; Temp 97.9; Pulse Ox 98% ; Weight 117.93 kg; Height 5 sv ft. 6 in. (167.64 cm); Pain 3/10; 17:50 BP 115 / 71; Pulse 92; Resp 19; Pulse Ox 100% on R/A; ca1 18:30 BP 121 / 74; Pulse 91; Resp 19; Pulse Ox 100% on R/A; ca1 19:52 BP 138 / 87; Pulse 92; Resp 19; Pulse Ox 100% ; ca1 20:30 BP 110 / 70; Pulse 94; Resp 19; Pulse Ox 100% on R/A; ca1 16:26 Body Mass Index 41.96 (117.93 kg, 167.64 cm) sv ED Course: 16:24 Patient arrived in ED. mr 16:24 None, None is Private Physician. mr 16:26 Triage completed. sv 16:28 Kanwal Bone, RN is Primary Nurse. ca1 16:28 Arm band placed on. sv 16:32 Patient has correct armband on for positive identification. Placed in gown. Bed in low ca1 position. Call light in reach. Side rails up X 1. monitoring analyst on. Pulse ox on. NIBP on. Warm blanket given. 16:32 No provider procedures requiring assistance completed. Patient maintains SpO2 ca1 saturation greater than 95% on room air. 16:44 EKG done, by electronic lab technician. reviewed by Julian Cordova MD. sm3 16:48 Julian Cordova MD is Attending Physician. [facility] 17:05 X-ray completed. Portable x-ray completed in exam room. Patient tolerated procedure mh1 well. 17:06 Chest Pa And Lat (2 Views) XRAY In Process Unspecified. EDMS 17:14 Radiology exam delayed due to lab results not completed at this time. (BUN/Creatinine) vm2 test not completed at this time. 17:50 Missed attempt(s): 22 gauge in left forearm. lt1 17:50 Initial lab(s) drawn, by me, sent to lab. Missed attempt(s): 22 gauge in right lt1 antecubital area. 17:57 Inserted saline lock: 20 gauge in left antecubital area, using aseptic technique. ca1 18:10 Radiology exam delayed due to lab results not completed at this time. (BUN/Creatinine). vm2 18:23 Radiology exam delayed due to lab results not completed at this time. (BUN/Creatinine). nj 18:34 Radiology exam delayed due to lab results not completed at this time. (BUN/Creatinine). nj 19:07 US Extremity Venous W Compression Suleman In Process Unspecified. EDMS 19:32 CT Chest For PE Angio In Process Unspecified. EDMS 19:32 CT completed. Patient tolerated procedure well. Patient moved back from CT. calvin 19:32 Ean Abebe PA is PHCP. [facility] 20:39 IV discontinued, intact, bleeding controlled, No redness/swelling at site. Pressure ca1 dressing applied. Administered Medications: 17:58 Drug: NS 0.9% 1000 ml Route: IV; Rate: 1 bolus; Site: left antecubital; ca1 19:45 Follow up: Response: No adverse reaction; IV Status: Completed infusion ca1 19:46 Drug: NS 0.9% 1000 ml Route: IV; Rate: 1 bolus; Site: left antecubital; ca1 20:40 Follow up: Response: No adverse reaction; IV Status: Completed infusion ca1 19:47 Drug: Insulin Regular Human 10 units {Co-Signature: mg2 (Hugo Mcleod RN).} Route: ca1 IVP; Site: left antecubital; 20:30 Follow up: Response: No adverse reaction; Other; BG decreased ca1 Outcome: 19:45 Discharge ordered by . janeen 20:39 Discharged to home ambulatory, with significant other. ca1 20:39 Condition: stable 20:39 Discharge instructions given to patient, Instructed on discharge instructions, follow up and referral plans. medication usage, Demonstrated understanding of instructions, follow-up care, medications, Prescriptions given X 2. 20:43 Patient left the ED. ca1 Signatures: Dispatcher [employer] EDMS Karin Banda RN RN sv Anderson, Corey, MD MD cha Mickail, Joel, PA PA [facility] Robert Nicky mr PooleAlicia 1 Jorden Lewis Victoria 2 Radha Manning 3 Kanwal Bone RN RN ca1 Libby Medrano 1 Hugo Mcleod RN mg2 Corrections: (The following items were deleted from the chart) 16:29 16:26 Pulse 94bpm; Resp 22bpm; Pulse Ox 98%; Temp 97.9F; 117.93 kg; Height 5 ft. 6 in.; sv BMI: 41.9; Pain 3/10; sv 16:43 14:32 Immunization history: Flu vaccine is not up to date. ca1 ca1 16:43 14:32 Social history: Smoking status: Patient/guardian denies using tobacco, ca1 ca1 16:44 14:32 Reassessment: ca1 ca1 16:44 14:32 General: Appears in no apparent distress. comfortable, Behavior is calm, ca1 cooperative, appropriate for age, ca1 16:44 14:32 Pain: Pain radiates to back Pain currently is 5 out of 10 on a pain scale. Pain ca1 began few days ago ca1 16:44 14:32 Neuro: Level of Consciousness is awake, alert, obeys commands, Oriented to ca1 person, place, time, situation, ca1 16:44 14:32 Cardiovascular: Heart tones S1 S2 present Capillary refill < 3 seconds Patient's ca1 skin is warm and dry. ca1 16:44 14:32 Respiratory: Airway is patent Respiratory effort is even, unlabored, Respiratory ca1 pattern is regular, symmetrical, Breath sounds are clear bilaterally. ca1 16:44 14:32 GI: Abdomen is round non-distended, Bowel sounds present X 4 quads. Abd is soft ca1 and non tender X 4 quads. ca1 16: 14:32 : No deficits noted. No signs and/or symptoms were reported regarding the ca1 genitourinary system. ca1 16: 14:32 EENT: No deficits noted. No signs and/or symptoms were reported regarding the ca1 EENT system. ca1 16:44 14:32 Derm: Skin is intact, is healthy with good turgor, Skin is pink, warm \T\ dry. ca1 ca1 16:44 14:32 Musculoskeletal: Circulation, motion, and sensation intact. Capillary refill < 3 ca1 seconds, ca1 18:06 18:05 Reassessment: Patient appears in no apparent distress at this time. Patient ca1 and/or family updated on plan of care and expected duration. Pain level reassessed. Patient is alert, oriented x 3, equal unlabored respirations, skin warm/dry/pink. Dr. Cordova at bedside to discuss plan of care ca1
[2018-07-16] MEDS ORDERED: INSULIN -REGULAR HUMAN 50 UNIT/0.5 ML ML ONE (19:55)
[2018-07-16 20:17] LABS: Urine Blood NEGATIVE (NEG); Urine Glucose 2+ (NEG); Urine Protein NEGATIVE (NEG); Urine pH 5.5 (5.0-7.0)
[2018-07-16 21:05] VITALS: TEMP 97.9
[2018-07-16 21:08] VITALS: O2SAT 100
[2018-07-16 21:12] VITALS: BP 110/70
== END 2018-07-16 20:43 | disposition home or self-care (01) ==
LOC: ER 16:20
DX: E10.9 Type 1 diabetes mellitus without complications (principal); Z79.4 Long term (current) use of insulin; Z88.5 Allergy status to narcotic agent; Z88.8 Allergy status to other drugs, medicaments and biological substances
CPT/HCPCS: 36415; 71046; 71275; 80048; 80076; 81003; 81025; 82962; 83735; 83880; 84484; 85025; 85610; 93005; 93970; 96361; 96374; 99285; J7030; Q9967

== ENCOUNTER 2019-06-12 08:32 | Emergency (ER) | payer MEDICAID, SELFPAY ==
[2019-06-12] MEDS ORDERED: NA CHLORIDE 0.9% 1,000 ML ONE (09:40)
[2019-06-12 09:53] LABS: Absolute Lymphocytes (CBC) 2.2 K/uL (0.7-4.9); Basophils % 0.8 % (0-1.3); Hematocrit 45.5 % (36.0-45.0); Lymphocytes % 30.4 % (15.3-44.8); MPV 8.5 fL (7.6-11.3); RBC Red Blood Cell Count 5.55 M/uL (3.86-4.86)
--- NOTE | 2019-06-12 10:01 | RAD REPORT ---
EXAM DESCRIPTION: RAD - Chest Pa And Lat (2 Views) - 06/12/2019 9:49 am CLINICAL HISTORY: COUGH COMPARISON: Chest Pa And Lat (2 Views) dated 07/16/2018; Chest Single View dated 10/26/2017; Chest Pa A nd Lat (2 Views) dated 06/26/2017 TECHNIQUE: Frontal and lateral views of the chest were obtained. FINDINGS: The lungs are underinflated but clear of a peripheral mass or consolidation. Fullness of e ach hilum is not clearly different from prior imaging when adjusting for the inspiratory changes. No significant failure or volume overload. Heart size is normal and central vasculature is within normal limits. No pleural effusion or pneu mothorax seen. No acute bony finding noted. No aortic abnormality. IMPRESSION: No acute cardiopulmonary process. Chest findings are not substantially different from c omparison studies.
[2019-06-12 10:02] LABS: BUN Blood Urea Nitrogen 11 mg/dL (7-18); Bicarbonate 28 mmol/L (21-32); Glucose Level 277 mg/dL (74-106); Potassium 3.8 mmol/L (3.5-5.1); Sodium Level 136 mmol/L (136-145)
--- NOTE | 2019-06-12 10:27 | ER ---
Nurse's Notes [facility] Name: Liya Diop Age: 33 yrs Sex: Female : 1985 Arrival Date: 06/12/2019 Time: 08:34 Bed 16 Private MD: Diagnosis: Acute upper respiratory infection, unspecified;Acute bronchitis Presentation: 06/12 08:48 Presenting complaint: Patient states: cough, wheezing, chest tightness since last iw night, denies fever. Transition of care: patient was not received from another setting of care. Onset of symptoms was June 11, 1999. Risk Assessment: Do you want to hurt yourself or someone else? Patient reports no desire to harm self or others. Initial Sepsis Screen: Does the patient meet any 2 criteria? No. Patient's initial sepsis screen is negative. Does the patient have a suspected source of infection? No. Patient's initial sepsis screen is negative. Care prior to arrival: None. 08:48 Method Of Arrival: Ambulatory iw 08:48 Acuity: SUKHJINDER 3 iw Triage Assessment: 08:50 General: Appears in no apparent distress. comfortable, Behavior is cooperative, bp appropriate for age, anxious. Pain: Denies pain. EENT: No deficits noted. Neuro: No deficits noted. Cardiovascular: Rhythm is sinus rhythm. Respiratory: Reports shortness of breath cough that is Onset: The symptoms/episode began/occurred yesterday, the patient has mild shortness of breath. GI: No signs and/or symptoms were reported involving the gastrointestinal system. : No signs and/or symptoms were reported regarding the genitourinary system. Derm: No deficits noted. Musculoskeletal: No deficits noted. Historical: - Allergies: 08:51 ceftriaxone; tw2 08:51 Naproxen; tw2 08:51 ceftriaxone; iw 08:51 Naproxen; iw - Home Meds: 08:51 Novolin R 100 unit/mL injection soln [Active]; Novolin N 100 unit/mL Sub-Q susp tw2 [Active]; 08:51 Novolin R 100 unit/mL injection soln three times a day [Active]; long acting insulin 20 iw units daily [Active]; - PMHx: 08:51 Diabetes - IDDM; tw2 08:51 Diabetes - IDDM; iw - PSHx: 08:51 Appendectomy; iw - Immunization history:: Adult Immunizations Adult Immunizations not up to date. - Coronavirus screen:: The patient has NOT traveled to [place] in the past 14 days. The patient has NOT traveled to [place] in the past 14 days. Proceed with normal triage process as indicated. - Social history:: Smoking status: Smoking status: Patient denies any tobacco usage or history of. - Ebola Screening: : Patient denies travel to an Ebola-affected area in the 21 days before illness onset Patient negative for fever greater than or equal to 101.5 degrees Fahrenheit, and additional compatible Ebola Virus Disease symptoms Patient denies exposure to infectious person Patient denies travel to an Ebola-affected area in the 21 days before illness onset No symptoms or risks identified at this time. Screenin:51 Abuse screen: Denies threats or abuse. Nutritional screening: No deficits noted. tw2 Tuberculosis screening: No symptoms or risk factors identified. Fall Risk None identified. Assessment: 08:50 General: SEE TRIAGE NOTE. Cardiovascular: Rhythm is sinus tachycardia. Respiratory: bp Airway is patent Respiratory effort is even, unlabored, Breath sounds are clear bilaterally. 09:39 Reassessment: PT TO XRAY. ALL CURRENT ORDERS COMPLETED. bp 11:17 Reassessment: PT D/C HOME AMBULATORY WITH FAMILY, DX WITH VIRAL URI. bp Vital Signs: 08:51 BP 155 / 92; Pulse 106; Resp 20; Temp 98.1; Pulse Ox 100% on R/A; Weight 117.03 kg; iw Height 5 ft. 6 in. (167.64 cm); Pain 8/10; 10:00 BP 127 / 83; Pulse 107; Resp 16; Pulse Ox 99% ; bp 11:00 BP 115 / 71; Pulse 100; Resp 17; Temp 98.5; Pulse Ox 97% ; bp 08:51 Body Mass Index 41.64 (117.03 kg, 167.64 cm) iw ED Course: 08:34 Patient arrived in ED. as 08:40 Bed in low position. Call light in reach. tw2 08:43 Karel Montes, BALJEET is Primary Nurse. bp 08:49 Triage completed. iw 08:51 Arm band placed on. iw 08:55 Jackson Mckeon PA is PHCP. jr8 08:55 Kirk Cabezas MD is Attending Physician. jr8 09:30 Inserted saline lock: 22 gauge in left forearm, using aseptic technique. Blood bp collected. 09:50 XRAY Chest Pa And Lat (2 Views) In Process Unspecified. EDMS 11:00 No provider procedures requiring assistance completed. IV discontinued, intact, bp bleeding controlled, No redness/swelling at site. Pressure dressing applied. Administered Medications: 09:30 Drug: NS 0.9% 1000 ml Route: IV; Rate: 1000 ml; Site: left forearm; bp 11:19 Follow up: IV Status: Completed infusion; IV Intake: 1000ml bp Intake: 11:19 IV: 1000ml; Total: 1000ml. bp Outcome: :22 Discharge ordered by MD. [facility] 11:00 Discharged to home ambulatory, with family. bp 11:00 Condition: stable 11:00 Discharge instructions given to patient, family, Instructed on discharge instructions, follow up and referral plans. medication usage, Demonstrated understanding of instructions, follow-up care, medications, Prescriptions given X 3. 11:19 Patient left the ED. bp Signatures: Dispatcher [employer] EDMS Velma Marr as Cindi Wilks, RN RN iw Jackson Mckeon PA PA jr8 Park Goodman RN RN tw2 Karel Montes, BALJEET RN bp
--- NOTE | 2019-06-12 10:28 | EDPHYS ---
Physician Documentation [facility] Name: Liya Diop Age: 33 yrs Sex: Female : 1985 Arrival Date: 06/12/2019 Time: 08:34 Bed 16 Private MD: ED Physician Kirk Cabezas HPI: 06/12 09:36 This 33 yrs old Female presents to ER via Ambulatory with complaints of jr8 Shortness Of Breath, Chest Pain. 09:36 The patient has shortness of breath at rest. Onset: The symptoms/episode began/occurred jr8 gradually, 2 day(s) ago. Duration: The symptoms are continuous. The patient's shortness of breath is aggravated by coughing. Associated signs and symptoms: Pertinent positives: chest pain, productive cough, sore throat, wheezing . Severity of symptoms: At their worst the symptoms were moderate in the emergency department the symptoms are unchanged. It is unknown whether or not the patient has had similar symptoms in the past. The patient has not recently seen a physician. Historical: - Allergies: 08:51 ceftriaxone; tw2 08:51 Naproxen; tw2 08:51 ceftriaxone; iw 08:51 Naproxen; iw - Home Meds: 08:51 Novolin R 100 unit/mL injection soln [Active]; Novolin N 100 unit/mL Sub-Q susp tw2 [Active]; 08:51 Novolin R 100 unit/mL injection soln three times a day [Active]; long acting insulin 20 iw units daily [Active]; - PMHx: 08:51 Diabetes - IDDM; tw2 08:51 Diabetes - IDDM; iw - PSHx: 08:51 Appendectomy; iw - Immunization history:: Adult Immunizations Adult Immunizations not up to date. - Coronavirus screen:: The patient has NOT traveled to [place] in the past 14 days. The patient has NOT traveled to [place] in the past 14 days. Proceed with normal triage process as indicated. - Social history:: Smoking status: Smoking status: Patient denies any tobacco usage or history of. - Ebola Screening: : Patient denies travel to an Ebola-affected area in the 21 days before illness onset Patient negative for fever greater than or equal to 101.5 degrees Fahrenheit, and additional compatible Ebola Virus Disease symptoms Patient denies exposure to infectious person Patient denies travel to an Ebola-affected area in the 21 days before illness onset No symptoms or risks identified at this time. ROS: 09:36 Eyes: Negative for injury, pain, redness, and discharge, Neck: Negative for injury, jr8 pain, and swelling, Abdomen/GI: Negative for abdominal pain, nausea, vomiting, diarrhea, and constipation, Back: Negative for injury and pain, MS/Extremity: Negative for injury and deformity, Skin: Negative for injury, rash, and discoloration, Neuro: Negative for headache, weakness, numbness, tingling, and seizure. 09:36 ENT: Positive for rhinorrhea. 09:36 Cardiovascular: Positive for chest pain, with cough, Negative for edema, orthopnea, palpitations, paroxysmal nocturnal dyspnea. 09:36 Respiratory: Positive for cough, shortness of breath, wheezing. Exam: 09:36 Eyes: Pupils equal round and reactive to light, extra-ocular motions intact. Lids and jr8 lashes normal. Conjunctiva and sclera are non-icteric and not injected. Cornea within normal limits. Periorbital areas with no swelling, redness, or edema. ENT: Nares patent. No nasal discharge, no septal abnormalities noted. Tympanic membranes are normal and external auditory canals are clear. Oropharynx with no redness, swelling, or masses, exudates, or evidence of obstruction, uvula midline. Mucous membranes moist. Neck: Trachea midline, no thyromegaly or masses palpated, and no cervical lymphadenopathy. Supple, full range of motion without nuchal rigidity, or vertebral point tenderness. No Meningismus. Cardiovascular: Regular rate and rhythm with a normal S1 and S2. No gallops, murmurs, or rubs. Normal PMI, no JVD. No pulse deficits. Respiratory: Lungs have equal breath sounds bilaterally, clear to auscultation and percussion. No rales, rhonchi or wheezes noted. No increased work of breathing, no retractions or nasal flaring. Abdomen/GI: Soft, non-tender, with normal bowel sounds. No distension or tympany. No guarding or rebound. No evidence of tenderness throughout. Back: No spinal tenderness. No costovertebral tenderness. Full range of motion. Skin: Warm, dry with normal turgor. Normal color with no rashes, no lesions, and no evidence of cellulitis. MS/ Extremity: Pulses equal, no cyanosis. Neurovascular intact. Full, normal range of motion. Neuro: Awake and alert, GCS 15, oriented to person, place, time, and situation. Cranial nerves II-XII grossly intact. Motor strength 5/5 in all extremities. Sensory grossly intact. Cerebellar exam normal. Normal gait. 11:12 ECG was reviewed by the Attending Physician. jr8 Vital Signs: 08:51 BP 155 / 92; Pulse 106; Resp 20; Temp 98.1; Pulse Ox 100% on R/A; Weight 117.03 kg; iw Height 5 ft. 6 in. (167.64 cm); Pain 8/10; 10:00 BP 127 / 83; Pulse 107; Resp 16; Pulse Ox 99% ; bp 11:00 BP 115 / 71; Pulse 100; Resp 17; Temp 98.5; Pulse Ox 97% ; bp 08:51 Body Mass Index 41.64 (117.03 kg, 167.64 cm) iw MDM: 08:58 Patient medically screened. jr8 10:20 Data reviewed: vital signs, nurses notes, lab test result(s), radiologic studies, plain jr8 films, and as a result, I will discharge patient. Data interpreted: Pulse oximetry: on room air is 100 %. Interpretation: normal. Counseling: I had a detailed discussion with the patient and/or guardian regarding: the historical points, exam findings, and any diagnostic results supporting the discharge/admit diagnosis, lab results, radiology results, the need for outpatient follow up, a family practitioner, to return to the emergency department if symptoms worsen or persist or if there are any questions or concerns that arise at home. 10:21 Differential diagnosis: Anxiety Reaction Bronchitis Myocardial Infarction pneumonia, jr8 Pneumothorax pulmonary edema, Pulmonary Embolism reactive airway disease, Sepsis Unstable Angina. 10:25 ED course: Patient with uncontrolled diabetes and history of pneumonia. Should not bee jr8 on steroids at this time. Will put on zithromax since she has uncontrolled comorbid conditions . 06/12 09:06 Order name: Strep; Complete Time: 10:14 06/12 09:06 Order name: Influenza Screen (a \T\ B); Complete Time: 10:14 8 06/12 09:06 Order name: CBC with Diff; Complete Time: 10:14 8 06/12 09:06 Order name: Basic Metabolic Panel; Complete Time: 10:14 06/12 09:06 Order name: XRAY Chest Pa And Lat (2 Views); Complete Time: 10:14 06/12 10:08 Order name: Throat Culture EDCA 06/12 09:06 Order name: IV; Complete Time: 09:39 06/12 09:06 Order name: Glucose Level; Complete Time: 10:01 06/12 10:20 Order name: EKG - Nurse/Tech; Complete Time: 11:11 06/12 10:20 Order name: EKG; Complete Time: 10:24 EC:12 Rate is 95 beats/min. Rhythm is regular, Normal Sinus Rhythm. QRS [place] is Normal. NM jr8 interval is normal at 146 msec. QRS interval is normal at 96 msec. QT interval is normal at 472 msec. No Q waves. T waves are Normal. No ST changes noted. Clinical impression: Normal ECG and No evidence of ischemia. Interpreted by me. Reviewed by me. Administered Medications: 09:30 Drug: NS 0.9% 1000 ml Route: IV; Rate: 1000 ml; Site: left forearm; bp 11:19 Follow up: IV Status: Completed infusion; IV Intake: 1000ml bp Disposition: 13:58 Co-signature as Attending Physician, Kirk Cabezas MD I agree with the assessment and kdr plan of care. Disposition: 06/12/19 10:22 Discharged to Home. Impression: Acute upper respiratory infection, unspecified, Acute bronchitis. - Condition is Stable. - Discharge Instructions: Acute Bronchitis, Adult, Upper Respiratory Infection, Adult. - Prescriptions for Albuterol Sulfate 90 mcg/actuation - inhale 1-2 puff by INHALATION route every 4-6 hours; 1 Inhaler. Guaifenesin AC 10- 100 mg/5 mL Oral Liquid - take 10 milliliter by ORAL route every 4 hours As needed; 240 milliliter. Zithromax Z- Sergey 250 mg Oral Tablet - take 1 tablet by ORAL route as directed for 5 days Day 1 - take two (2) tablets one time. Day 2, 3, 4 , 5 take one (1) tablet once daily.; 6 tablet. - Medication Reconciliation Form, Thank You Letter, Antibiotic Education, Prescription Opioid Use, Work release form form. - Follow up: Private Physician; When: 5 - 6 days; Reason: Recheck today's complaints, Continuance of care, Re-evaluation by your physician. - Problem is new. - Symptoms have improved. Signatures: Dispatcher [employer] EDMS Kirk Cabezas MD MD [facility] Cindi Wilks RN RN Jackson Espinoza PA PA jr8 Park Goodman RN RN tw2 Karel Montes RN RN bp Corrections: (The following items were deleted from the chart) 11:19 10:22 06/12/2019 10:22 Discharged to Home. Impression: Acute upper respiratory bp infection, unspecified; Acute bronchitis. Condition is Stable. Forms are Medication Reconciliation Form, Thank You Letter, Antibiotic Education, Prescription Opioid Use. Follow up: Private Physician; When: 5 - 6 days; Reason: Recheck today's complaints, Continuance of care, Re-evaluation by your physician. Problem is new. Symptoms have improved. jr8
[2019-06-12 11:29] VITALS: BP 115/71; TEMP 98.5; O2SAT 97
--- NOTE | 2019-06-12 15:35 | EKG ---
Test Date: 2019-06-12 Test Time: 11:05:16 Kst Operator: LIBRA MEASUREMENT RESULTS: Intervals: Rate: 95 [place]: 146 QRSD: 96 QT: 376 QTc: 472 [place]: P: 46 [place]: 146 QRS: 57 T: 39 INTERPRETIVE STATEMENTS: Normal sinus rhythm Normal ECG Compared to ECG 07/16/2018 16:39:04 No significant changes Electronically Signed On 06-12-19 15:34:58 SURVEILLANCE DUAL RATE OFFICER by Raleigh Vang
== END 2019-06-12 11:19 | disposition home or self-care (01) ==
LOC: ER 08:32
DX: J20.9 Acute bronchitis, unspecified (principal); E11.9 Type 2 diabetes mellitus without complications; Z79.4 Long term (current) use of insulin; Z88.6 Allergy status to analgesic agent; Z88.8 Allergy status to other drugs, medicaments and biological substances
CPT/HCPCS: 36415; 71046; 80048; 85025; 87070; 87081; 87804; 93005; 96360; 96361; 99284; J7030

== ENCOUNTER 2021-03-15 11:03 | Emergency (ER) | payer OTHER, SELFPAY ==
--- OUTSIDE RECORDS SUMMARY | 2021-03-15 11:08 | XMS REPORT | Continuity of Care Document ---
:1985 Author Organization [facility] t Address [address] [place] [address] Care Team Providers Name Role Phone Doctor Unassigned, Name Attending Clinician Unavailable Jj HERNANDEZ G Attending Clinician Pcp, Does Not Have A Attending Clinician Ismael RAYMUNDO S Attending Clinician Ramón DORSEY Attending Clinician Unavailable BARI Attending Clinician Unavailable Lab, Fam Pob I Attending Clinician Unavailable Debbi AUTOMATION CONTROL TECHNICIAN Attending Clinician Bari AUTOMATION CONTROL TECHNICIAN Attending Clinician Emma Salcedo Attending Clinician Emma FRAZIER Attending Clinician Unavailable Payers Payer Name Policy Type Policy Number Effective Date Expiration Date Darling BOWENS II [id number] 2019 00:00:00 Problems Condition Condition Condition Status Onset Resolution Last Treating Co mments Source Name Details Category Date Date Treatment Clinician Date No known No known Disease Unive rs active active ity of problems problems [facility] Allergies, Adverse Reactions, Alerts Allergy Allergy Status Severity Reaction(s) Onset Inactive Treating Comm ents Source Name Type Date Date Clinician NO KNOWN Drug Active Univers ALLERGIE Class ity of S [facility] Social History Social Habit Start Date Stop Date Quantity Comments Source Sex Assigned At Uni versity [facility] Exposure to SARS-CoV-2 Yes Un [facility]ity [place] (event) [facility] Smoking Status Start Date Stop Date Source Unknown if ever smoked Universit y [facility] Medications Ordered Filled Start Stop Current Ordering Indication Dosage Frequency Signature Comments Components Source Medication Medication Date Date Medication? Clinician (SIG) Name Name cefTRIAXone 2019-04 2020- No [id number] 1000mg 1,000 mg, Univers (ROCEPHIN) 06-13 IV ity of 1,000 mg in 21:00: 20:19 Piggyback, [place] NaCl 0.9% 00 :00 ONCE, 1 Medical (NS) 50 mL dose, [facility] ch MINI-BAG 04/12/20 at 1500, 50 mL
Reas on for Anti-Infec tive: Documented Infection< br>Documen osiris Infection Site: Urine
D uration of Therapy: 7 days NaCl 0.9% 2019-04- No [id number] 1000mL at 1,000 Univers (NS) IV 06-13 mL/hr, ity of infusion 20:00: 20[place]10 [place] 1,000 mL 00 :00 s, ONCE, 1 Medic al dose, [facility] 04/12/20 at 1400, NA diphenhydrA 2019-04- No [id number] 25mg 25 mg, Univers MINE 06-13 Slow IV ity of (BENADRYL) 20:00: 19:00 Push, [place] injection 00 :00 ONCE, 1 Medical 25 mg dose, [facility] 04/12/20 at 1400, STAT metoclopram 2019-04- No [id number] 10mg 10 mg, Univers isabella HCl 06-13 Slow IV ity of (REGLAN) 20:00: 19:00 Push, [place] injection 00 :00 ONCE, 1 Medical 10 mg dose, [facility] 04/12/20 at 1400, NA ketorolac 2019-04- No [id number] 30mg 30 mg, U nivers (TORADOL) 06-13 Slow IV ity of injection 20:00: 18:59 Push, [place] 30 mg 00 :00 ONCE, 1 Medical dose, [facility] 04/12/20 at 1400, Routine
history faculty member approving Restricted medication : ANTONIA BRUMFIELD hydroCHLORO 2019-04- No [id number] 25mg Take 1 Univers thiazide 25 06-13 tablet by it y of mg tablet 00:00: 05:59 mouth [place] 00 :00 every Medical morning Branch for 21 days. cephALEXin 2019-04- No [id number] 500mg Take 1 Univers 500 mg 06-13 capsule by ity of capsule 00:00: 05:59 mouth 3 [place] 00 :00 (three) Medical times Branch daily for 7 days. insulin 2019-04 Yes inject Univers glargine,hu 2-20 under the ity of m.rec.anlog 03:51: skin. [place] (LANTUS 00 Medical [address] INSULIN SC) insulin 2019-04 Yes inject Univers lispro 2-20 under the ity of (HUMALOG 03:51: skin. [place] PEN SC) [facility] [place] [facility] insulin 2019-04 Yes inject Univers glargine,hu 2-20 under the ity of m.rec.anlog 03:51: skin. [place] (LANTUS 00 Medical [address] [place] INSULIN SC) insulin 2019-04 Yes inject Univers lispro 2-20 under the ity of (HUMALOG 03:51: skin. [place] PEN SC) [facility] [place] [facility] insulin 2019-04 Yes inject Univers glargine,hu 2-20 under the ity of m.rec.anlog 03:51: skin. [place] (LANTUS 00 [facility] [address] [place] INSULIN SC) insulin 2019-04 Yes inject Univers lispro 2-20 under the ity of (HUMALOG 03:51: skin. [place] PEN SC) [facility] [place] [facility] insulin 2019-04 Yes inject Univers glargine,hu 2-20 under the ity of m.rec.anlog 03:51: skin. [place] (LANTUS 00 Medical [address] [place] INSULIN SC) insulin 2019-04 Yes inject Univers lispro 2-20 under the ity of (HUMALOG 03:51: skin. [place] PEN SC) [facility] [place] [facility] insulin 2019-04 Yes inject Univers glargine,hu 2-20 under the ity of .rec.anlog 03:51: skin. [place] (LANTUS 00 Medical [address] [place] INSULIN SC) insulin 2019-04 Yes inject Univers lispro 2-20 under the ity of (HUMALOG 03:51: skin. [place] PEN SC) [facility] [place] [facility] proMETHazin 2019-04 2020- No 12.5mg 12.5 mg, Univers e 2-20 12-20 IV ity of (PHENERGAN) 01:45: 00:56 Piggyback, [place] 12.5 mg in 00 :00 ONCE, 1 Medica l NaCl 0.9% dose, Sat [facility] h (NS) 50 mL 04/04/20 piggyback at 1945, 50 mL NaCl 0.9% 2019-04- No 1000mL at 999 Uni vers (NS) bolus 2-20 12-20 mL/hr, ity of infusion 00:15: 03:50 1,000 mL, [place] as 1,000 mL 00 :00 IV Medical Infusion, Branch ONCE, 1 dose, 04/04/20 at 1815, STAT ondansetron 2019-04- No 4mg 4 mg, Slow Univers (ZOFRAN 2-20 - IV Push, ity of (PF)) 00:15: 23:51 ONCE, 1 [place] injection 4 00 :00 dose, Sat Med ical mg 04/04/20 Branch at 1815, NA proMETHazin 2019-04 Yes [id number] 25mg Take 1 Univers e 25 mg 2-19 tablet by ity of tablet 00:00: mouth [place] 00 every 6 Medical (six) Branch hours as needed for Nausea and Vomiting (N/V). proMETHazin 2019-04 Yes [id number] 25mg Take 1 Univers e 25 mg 2-19 tablet by ity of tablet 00:00: mouth [place] 00 every 6 Medical (six) Branch hours as needed for Nausea and Vomiting (N/V). proMETHazin 2019-04 Yes [id number] 25mg Take 1 Univers e 25 mg 2-19 tablet by ity of tablet 00:00: mouth [place] 00 every 6 Medical (six) Branch hours as needed for Nausea and Vomiting (N/V). proMETHazin 2019-04 Yes [id number] 25mg Take 1 Univers e 25 mg 2-19 tablet by ity of tablet 00:00: mouth [place] 00 every 6 Medical (six) Branch hours as needed for Nausea and Vomiting (N/V). proMETHazin 2019-04 Yes [id number] 25mg Take 1 Univers e 25 mg 2-19 tablet by ity of tablet 00:00: mouth [place] 00 every 6 Medical (six) Branch hours as needed for Nausea and Vomiting (N/V). NaCl 0.9% 2019-04- No 1000mL at 1,000 U nivers (NS) IV 2-16 12-16 mL/hr, ity of infusion 19:45: 20:48 [place]venou [place] 1,000 mL 00 :00 s, ONCE, 1 Medic al dose, Wed Branch 04/01/20 at 1345, NA diphenhydrA 2019-04- No 25mg 25 mg, Uni vers MINE -16 16 Slow IV ity of (BENADRYL) 19:45: 18:45 Push, [place] injection 00 :00 ONCE, 1 Medical 25 mg dose, Wed Branch 04/01/20 at 1345, STAT metoclopram 2019-04- No 10mg 10 mg, Uni vers isabella HCl 06-02 Slow IV ity of (REGLAN) 19:45: 18:45 Push, [place] injection 00 :00 ONCE, 1 Medical 10 mg dose, Wed Branch 04/01/20 at 1345, NA ketorolac 2019-04- No 30mg 30 mg, Unive rs (TORADOL) 06-02 Slow IV ity of injection 19:45: 18:45 Push, [place] 30 mg 00 :00 ONCE, 1 Medical dose, Wed Branch 04/01/20 at 1345, Routine
history faculty member approving Restricted medication : ANTONIA BRUMFIELD butalbital- 2019-04 2020- No 1{tbl} 1 tablet, Univers acetaminoph -16 -16 Oral, ity of en-caff 19:45: 18:45 ONCE, 1 [place] (ESGIC) 00 :00 dose, [facility] Medical 50-325-40 04/01/20 Branch mg tablet 1 at 1345, tablet Routine benzonatate 2019-04 Yes [id number] 100mg Take 1 Univers 100 mg 2-16 capsule by ity of capsule 00:00: mouth 3 [place] 00 (three) Medical times Branch daily as needed for Cough. butalbital- 2019-04 Yes [id number] 1{tbl} Take 1 Univers acetaminoph 2-16 tablet by ity of en-caff 00:00: mouth [place] 50-325-40 00 every 4 Medical mg tablet (four) Branch hours as needed for Pain (scale 4-6). benzonatate 2019-04 2020- No [id number] 100mg Take 1 Univers 100 mg 2-16 12-19 capsule by ity of capsule 00:00: 00:00 mouth 3 [place] 00 :00 (three) Medical times Branch daily as needed for Cough. butalbital- 2019-04 2020- No [id number] 1{tbl} Take 1 Univers acetaminoph 2-16 12-19 tablet by it y of en-caff 00:00: 00:00 mouth [place] 50-325-40 00 :00 every 4 Medical mg tablet (four) Branch hours as needed for Pain (scale 4-6). metFORMIN 2014-0 Yes 1000mg Take 1 Tab Univers (GLUCOPHAGE 9-16 by mouth 2 it y of ) 1,000 mg 00:00: (two) [place] tablet 00 times Medical daily with Branch meals. benzonatate 2014-0 Yes 200mg Take 1 Cap Univers (TESSALON) 9-16 by mouth 3 ity of 200 mg 00:00: (three) [place] capsule 00 times Medical daily as Branch needed for Cough. azithromyci 2014-0 Yes 250mg Take 1 Tab Univers n 9-16 by mouth ity of (ZITHROMAX) 00:00: daily. [place] 250 mg 00 Medical tablet Branch metFORMIN 2014-0 Yes 1000mg Take 1 Tab Univers (GLUCOPHAGE 9-16 by mouth 2 it y of ) 1,000 mg 00:00: (two) [place] tablet 00 times Medical daily with Branch meals. benzonatate 2014-0 Yes 200mg Take 1 Cap Univers (TESSALON) 9-16 by mouth 3 ity of 200 mg 00:00: (three) [place] capsule 00 times Medical daily as Branch needed for Cough. azithromyci 2014-0 Yes 250mg Take 1 Tab Univers n 9-16 by mouth ity of (ZITHROMAX) 00:00: daily. [place] 250 mg 00 Medical tablet Branch metFORMIN 2014-0 Yes 1000mg Take 1 Tab Univers (GLUCOPHAGE 9-16 by mouth 2 it y of ) 1,000 mg 00:00: (two) [place] tablet 00 times Medical daily with Branch meals. metFORMIN 2015-0 Yes 1000mg Take 1 Tab Univers (GLUCOPHAGE 9-16 by mouth 2 it y of ) 1,000 mg 00:00: (two) [place] tablet 00 times Medical daily with Branch meals. benzonatate 2015-0 Yes 200mg Take 1 Cap Univers (TESSALON) 9-16 by mouth 3 ity of 200 mg 00:00: (three) [place] capsule 00 times Medical daily as Branch needed for Cough. azithromyci 2014-0 Yes 250mg Take 1 Tab Univers n 9-16 by mouth ity of (ZITHROMAX) 00:00: daily. [place] 250 mg 00 Medical tablet Branch metFORMIN 2019- No 1000mg Take 1 Tab Univers (GLUCOPHAGE 12-31 by mouth 2 i ty of ) 1,000 mg 00:00: 00:00 (two) [place] tablet 00 :00 times Medical daily with Branch meals. benzonatate 2019- No 200mg Take 1 Cap Univers (TESSALON) 12-31 by mouth 3 it y of 200 mg 00:00: 00:00 (three) [place] capsule 00 :00 times Medical daily as Branch needed for Cough. azithromyci 2019- No 250mg Take 1 Tab Univers n 12-31 by mouth ity of (ZITHROMAX) 00:00: 00:00 daily. [place] as 250 mg 00 :00 Medical tablet Branch Vital Signs Vital Name Observation Time Observation Value Comments Source Systolic blood 2020-04-12 20:00:00 152 mm[Hg] Univer sity of pressure [facility] Diastolic blood 2020-04-12 20:00:00 94 mm[Hg] Unive rsity of [facility] Heart rate 2020-04-12 20:00:00 76 /min [facility] Body temperature 2020-04-12 20:00:00 36.94 Pauline [facility] Respiratory rate 2020-04-12 20:00:00 10 /min [facility] Oxygen saturation in 2020-04-12 20:00:00 96 /min University Arterial blood by [facility] Pulse oximetry Branch Body weight 2020-04-12 18:19:00 114.76 kg Universi ty [facility] BMI 2020-04-12 18:19:00 40.84 kg/m2 [facility] Systolic blood 2020-04-05 00:35:00 134 mm[Hg] Univer sity of pressure [facility] Diastolic blood 2020-04-05 00:35:00 89 mm[Hg] Unive rsity of pressure [facility] Heart rate 2020-04-05 00:35:00 92 /min Universi ty [facility] Respiratory rate 2020-04-05 00:35:00 19 /min [facility] O[facility] saturation in 2020-04-05 00:35:00 98 /min University of Arterial blood by [facility] Pulse oximetry Branch Body temperature 2020-04-04 21:57:00 37.28 Pauline [facility] Body weight 2020-04-04 21:57:00 114.76 kg Universi ty [facility] BMI 2020-04-04 21:57:00 40.84 kg/m2 Universi ty [facility] Systolic blood 2020-04-01 17:50:00 145 mm[Hg] Univer sity of [facility] Diastolic blood 2020-04-01 17:50:00 100 mm[facility]Hg] [facility] Heart rate 2020-04-01 17:50:00 104 /min Universi ty [facility] Body temperature 2020-04-01 17:50:00 36.78 Pauline [facility] Respiratory rate 2020-04-01 17:50:00 18 /min [facility] Body weight 2020-04-01 17:50:00 114.76 kg Universi [facility] BMI 2020-04-01 17:50:00 40.84 kg/m2 [facility] Oxygen saturation in 2020-04-01 17:50:00 98 /min [facility] Arterial blood by [facility] Pulse oximetry Branch Procedures Procedure Date / Time Performing Clinician Source Performed MEDICATION CORRESPONDENCE 2020-06-02 06:01:00 Doctor Unassigned, [facility] Name [facility] [place] [facility] MEDICATION CORRESPONDENCE 2020-05-18 06:01:00 Doctor Unassigned, [facility] [place] [facility] [place] URINALYSIS 2020-04-12 19:04:00 Antonia Brumfield [facility] POCT TEST 2020-04-12 18:43:00 Antonia Brumfield [facility] URINALYSIS 2020-04-05 00:56:00 Meche Guevara [facility] TROPONIN I 2020-04-04 23:48:00 Meche Guevara [facility] COMP. METABOLIC PANEL 2020-04-04 23:48:00 Meche Guevara [facility] ([id number]) [facility] CBC WITH DIFF 2020-04-04 23:48:00 Meche Guevara [facility] D-DIMER 2020-04-04 23:48:00 Meche Guevara [facility] XR CHEST 1 VW 2020-04-04 22:56:37 Meche Guevara [facility] POCT GLUCOSE (AUTOMATED) 2020-04-01 18:53:00 [facility] 2020-04-01 18:44:00 Antonia Brumfield [facility] RAPID STREP SCREEN FOR 2020-04-01 18:44:00 Antonia Brumfield [facility] GROUP A [facility] ADC,CLC OR LCC ONLY - 2020-04-01 18:44:00 Antonia Brumfield [facility] INFLUENZA A & B DIRECT Medical B [place] ANTIGEN POCT TEST 2020-04-01 18:43:00 Antonia Brumfield [facility] NOTICE OF PRIVACY 2020-04-01 17:44:12 Doctor Nuñez [facility] PRACTICES [place] [facility] CONSENT/REFUSAL FOR 2020-04-01 17:44:00 Doctor Savannah [facility] DIAGNOSIS AND TREATMENT [place] [facility] Encounters Start End Encounter Admission Attending Care Care Encounter Source Date/Time Date/Time Type Type Clinicians Facility Department ID 2021-02-13 Emergency [facility] [id number] Univers 13:13:38 ity of [facility] 2021-02-13 Emergency [facility] [id number] Univers 12:17:17 ity [facility] 2021-02-13 Emergency [facility] [id number] [facility] 2020-06-02 2020-06-02 Orders Doctor CRISTY [id number] [id number] Univers 00:00:00 00:00:00 Only Unassigned, [place] 350.1.13.10 ity of [place] [facility] 4.2.7.2.686 [place] as [id number] [address] 2020-05-18 2020-05-18 Orders Doctor CRISTY Tay2.840.114 [id number] Univers 00:00:00 00:00:00 Only Unassigned, LB 350.1.13.10 ity of [place] [facility] 4.2.7.2.686 [place] as [id number] [facility] 009 Branch 2020-04-12 2020-04-12 [facility] [id number] Univers 12:32:00 14:21:00 Antonia Cuello 350.1.13.10 ity of [place] 4.2.7.2.686 [facility] [id number] [facility] 084 Branch 2020-04-11 2020-04-11 Telephone PcpCRISTY [id number] Univers 00:00:00 00:00:00 Patient LB 350.1.13.10 it y of [facility] 4.2.7.2.686 [place] A [id number] [facility] 019 Branch 2020-04-04 2020-04-04 Emergency [place], [facility] [id number] Univers 16:05:00 22:16:00 Meche [place] 350.1.13.10 i ty of [place] 4.2.7.2.686 [facility] [id number] [place] [address] Branch 2020-04-01 2020-04-01 [facility] [id number] Univers 11:52:00 14:50:00 Antonia Cuello 350.1.13.10 ity of [place] 4.2.7.2.686 [facility] [id number] [address] 2020-03-31 2020-03-31 Outpatient R [facility] [id number] Univers 08:30:00 08:30:00 [id number] ity of [facility] 2020-03-27 2020-03-27 Outpatient R [facility] [id number] Univers 18:15:00 18:15:00 [id number] ity of [facility] 2020-03-27 2020-03-27 Outpatient R WILLIAN, [facility] [id number] Univers 18:15:00 18:15:00 KEYONA ity of [facility] 2020-03-26 2020-03-26 Outpatient R [facility] [id number] Univers 18:30:00 18:30:00 [id number] ity of [facility] 2020-03-26 2020-03-26 Outpatient R WILLIAN [facility] [id number] Univers 18:30:00 18:30:00 KEYONA ity of [facility] 2019-11-17 2019-11-17 Outpatient R BARI [facility] [id number] Univers 16:40:00 16:40:00 DAYAMI ity [facility] 2019-11-17 2019-11-17 Outpatient R [facility] [id number] Univers 15:30:00 15:30:00 [id number] ity [facility] 2019-11-17 2019-11-17 Laboratory Lab, [facility] Pob I [facility] 1.2. [id number] [id number] Univers 14:13:09 14:33:09 Only Priyanka [facility] 350.1.13.10 ity of Dayami Badillo [place] 4.2.7.2.686 [place] Professio [id number] [address] 2019-10-24 2019-10-24 Laboratory Lab, [facility] Pob I [facility] 1.. [id number] [id number] Univers 10:22:46 10:42:46 Only Diana [facility] 350.1.13.10 ity of [place] 4.2.7.2.686 Jacob as Professio [id number] [address] 2019-10-24 2019-10-24 Outpatient R [facility] [id number] Univers 10:20:00 10:20:00 ity [facility] 2019-10-24 2019-10-24 Outpatient R KARIN [facility] [id number] Univers 10:20:00 10:20:00 DIANA ity [facility] 2019-10-18 2019-10-18 Outpatient R [facility] [id number] Univers 11:00:00 11:00:00 ity [facility] 2019-10-18 2019-10-18 Laboratory Lab, [facility] I [facility] 1.2. 840.114 [id number] Univers 09:56:21 10:16:21 Only Diana [facility] 350.1.13.10 ity of [place] 4.2.7.2.686 Jacob as Travis [id number] Md dical nal [address] 2019-10-18 2019-10-18 Outpatient Eileen FRAZIER, [facility] [id number] Univers 09:40:00 09:40:00 DIANA ernestinaberto [facility] Results Test Description Test Time Test Comments Results Result Comments Source URINALYSIS 2020-04-12 19:22:00 Test Item Value Reference Range Interpretation Comme nts APPEARANCE (test code = Clear Clear 1367596198) COLOR (test code = 0018485117) Yellow Yellow PH (test code = 0799186120) 4.8-8.0 SP GRAVITY (test code = 1.003-1.030 6887624461) GLU U QUAL (test code = Normal Normal 5969521736) BLOOD (test code = 9200241270) Negative Negative KETONES (test code = 0627982243) Negative Negative PROTEIN (test code = 2887-8) Negative Negative UROBILIN (test code = Normal Normal 6249761003) BILIRUBIN (test code = Negative Negative 0174996008) NITRITE (test code = 7713251941) Negative Negative LEUK DAVID (test code = 250/uL Negative A 2143087211) RBC/HPF (test code = 5506773922) See_Comment [Automated message] The system which ge nerated this result transmit osiris reference range: 0 - 3 HP F. The reference range was not used to interpret th is result as normal/abnormal . WBC/HPF (test code = 7542256328) See_Comment H [Automated message] The system which ge nerated this result transmit osiris reference range: 0 - 5 HP F. The reference range was not used to interpret th is result as normal/abnormal . BACTERIA (test code = Negative Negative 9132179921) MUCOUS (test code = 4704816031) Slight Negative LPF A AMORPHOUS (test code = Rare Rare HPF 4543151002) SQ EPITH (test code = HPF 5006124341) YEAST BUD (test code = See_Comment H [Aut omated message] The 8854939895) system which ge nerated this result transmit osiris reference range: <=1 HPF. The reference range was not u sed to interpret this result as normal/abnormal . Lab Interpretation (test code = Abnormal 74583-7) [facility] [id number] 18:43:00 Test Item Value Reference Range Interpretation Comments POCT PREG (test code = 1605) negative POCT PREG LOT # (test code = 3575) [id number] POCT PREG TEST DATE (test 08/14/2021 code = 3576) Lab Interpretation (test code = Normal 12227-0) [facility]-20 01:56:00 Test Item Value Reference Range Interpretation Comments APPEARANCE (test code = Clear Clear 5285625465) COLOR (test code = Yellow Yellow 7487390470) PH (test code = 4.8-8.0 0464715893) SP GRAVITY (test code = >=1.030 1.003-1.030 6719503738) GLU U QUAL (test code = Negative Negative 1312868485) BLOOD (test code = Negative Negative 8603505684) KETONES (test code = Trace Negative A 5139376434) PROTEIN (test code = Trace Negative A 2887-8) UROBILIN (test code = 0.2 mg/dL See_Comment [Auto mated message] 1197647809) The system [employer] generated this result transmit osiris reference range : 0-1.0 mg/dL. Th e reference range was not used to interpret this result as normal/abnormal . BILIRUBIN (test code = Negative Negative 3059592152) NITRITE (test code = Negative Negative 3438362200) LEUK DAVID (test code = Negative Negative 1831299073) RBC/HPF (test code = See_Comment H [Autom ated message] 4592672033) The system [employer] generated this result transmit osiris reference range : 0 - 3 HPF. The refe rence range was not u sed to interpret th is result as normal/abnormal . WBC/HPF (test code = See_Comment [Autom ated message] 9516339971) The system [employer] generated this result transmit osiris reference range : 0 - 5 HPF. The refe rence range was not u sed to interpret th is result as normal/abnormal . BACTERIA (test code = Few Negative A 1011398427) SQ EPITH (test code = HPF 6673468742) Lab Interpretation (test Abnormal code = 17014-6) [facility] [id number] 01:55:00 Test Item Value Reference Range Interpretation Comments TROPONIN I (test <0.012 See_Comment [Automated code = 4275683697) message] The system which generated this result transmitted reference range : <=0.034 ng/mL. The reference range was not used to interpr et this result as normal/abnormal . RADHA (test code = Equal or Less than RADHA) 0.034 ng/ml---Normal ?Note: Cardiac troponin begins to rise 3-4 hours after the onset of ischemia. Repeat in 4-6 hours if the sample was drawn within 3-4 hours of the onset of the symptom and found normal. Between 0.035 and 0.120 ng/mL--- Borderline. Questionable myocardial injury or necrosis ? ?Note: Serial measurement may be necessary to confirm or exclude the diagnosis of myocardial injury or necrosis; Clinical correlation (symptoms, EKGs, imaging studies, and others) required; Repeat in 4-6 hours if clinically indicated. ? Equal or Higher than 0.121 ng/mL---Abnormal. Myocardial Injury or Necrosis Likely ? Biotin has been reported to cause a negative bias, interpret results relative to patient's use of biotin. ? Lab Interpretation Normal (test code = 63635-1) [id number] 01:47:00 Test Item Value Reference Interpretation Comments Range D-DIMER (test code = See_Comment H [Autom ated 6094626854) message] The system which generated this result transmitted reference range : <0.41 ?g/mL (FEU). The reference range was not used to interpret this result as normal/abnormal . RADHA (test code = This test may be RADHA) used in conjunction with a clinical pretest probability (PTP) assessment model to exclude venous thromboembolism (VTE) in patients suspected of deep venous thrombosis (DVT) and pulmonary embolism (PE) A D-Dimer value less than 0.50 ?g/ml (FEU) has a negative predicative value of 96 to 100% (95% CI)and 97 to 100% (95% CI) as an aid in the diagnosis of deep vein thrombosis (DVT) and pulmonary embolism when there is low or moderate pretest probability of PE or DVT. D-Dimer values are expressed in initial fibrinogen equivalent units (FEU)" The assay results should be used with other information, including the clinical context, in forming a diagnosis. Lab Interpretation Abnormal (test code = 16088-6) [facility]. METABOLIC PANEL (72753)2020-04-05 01:44:00 Test Item Value Reference Range Interpretation Comments NA (test code = 136 mmol/L 135-145 4342928888) K (test code = 4.3 mmol/L 3.5-5 6076545065) CL (test code = 100 mmol/L 98-108 3621957606) CO2 TOTAL (test code = 28 mmol/L 23-31 0870097642) AGAP (test code = 2-16 3878514928) BUN (test code = 17 mg/dL 7-23 2815297323) GLUCOSE (test code = 122 mg/dL 70-110 H 6218493083) CREATININE (test code = 0.51 mg/dL 0.5-1.04 8090412654) TOTAL BILI (test code = 0.6 mg/dL 0.1-1.3 7629527790) CALCIUM (test code = 8.9 mg/dL 8.6-10.6 5961881733) T PROTEIN (test code = 7.3 g/dL 6.3-8.2 8162730758) ALBUMIN (test code = 4.0 g/dL 3.5-5 3629347513) ALK PHOS (test code = 75 U/L 34-122 0537147649) ALTv (test code = 31 U/L 5-35 1742-6) AST(SGOT) (test code = 51 U/L 13-40 H 9295392241) eGFR Calculation mL/min/1.73m2 (Non-) (test code = 4864948154) eGFR Calculation mL/min/1.73m2 () (test code = 9965037399) RADHA (test code = RADHA) Association of Glomerular Filtration Rate (GFR) and Staging of Kidney Disease* + --+ --+ ------+| GFR (mL/min/1.73 m2) ?| With Kidney Damage ?| ?Without Kidney Damage+ --------+ --------+ +| ?>90 ?| ?Stage one ?| ? Normal ?+ ---+ ---+ -------+| ?60-89 ?| ?Stage two ?| ? Decreased GFR ? + --+ --+ ------+| ?30-59 ?| ?Stage three ?| ? Stage three ? + --+ --+ ------+| ?15-29 ?| ?Stage four ? | ? Stage four ?+ ---+ ---+ -------+| ?<15 (or dialysis) ? ?| ?Stage five ? | ? Stage five ?+ ---+ ---+ -------+ *Each stage assumes the associated GFR level has been in effect for at least three months. ?Stages 1 to 5, with or without kidney disease, indicate chronic kidney disease. Notes: Determination of stages one and two (with eGFR >59mL/min/1.73 m2) requires estimation of kidney damage for at least three months as defined by structural or functional abnormalities of the kidney, manifested by either:Pathological abnormalities or Markers of kidney damage (including abnormalities in the composition of the blood or urine or abnormalities in imaging tests). Lab Interpretation Abnormal (test code = 61768-4) [facility] WITH [id number] 01:38:00 Test Item Value Reference Range Interpretation Comments WBC (test code = See_Comment L [Automated 0690-2) message] The sy stem which generated this result transmitted reference range : 4.30 - 11.10 10*3/?L. The reference range was not used to interpret this result as normal/abnormal . RBC (test code = See_Comment H [Automated 469-8) message] The sy stem which generated this result transmitted reference range : 3.93 - 5.25 10*6/?L. The reference range was not used to interpret this result as normal/abnormal . HGB (test code = 15.2 g/dL 11.6-15 H 718-7) HCT (test code = 44.2 % 35.7-45.2 4544-3) MCV (test code = 82.5 fL 80.6-95.5 787-2) MCH (test code = 28.4 pg 25.9-32.8 785-6) MCHC (test code = 34.4 g/dL 31.6-35.1 786-4) RDW-SD (test code = 35.3 fL 39-49.9 L 15406-0) RDW-CV (test code = 11.9 % 12-15.5 L 788-0) PLT (test code = See_Comment L [Automated 777-3) message] The sy stem which generated this result transmitted reference range : 166 - 358 10*3/ ?L. The reference r juan was not used to interpret this result as normal/abnormal . MPV (test code = 10.6 fL 9.5-12.9 17536-4) NRBC/100 WBC (test See_Comment [Automat ed code = 7217690713) message] The system which generated this result transmitted reference range : 0.0 - 10.0 /100 WBCs. The refer ence range was not u sed to interpret th is result as normal/abnormal . NRBC x10^3 (test code <0.01 See_Comment [Auto mated = 2056477696) message] The s ystem which generated this result transmitted reference range : 10*3/?L. The reference range was not used to interpret this result as normal/abnormal . GRAN MAT (NEUT) % 46.4 % (test code = 770-8) IMM GRAN % (test code 0.20 % = 2116698695) LYMPH % (test code = 38.7 % 736-9) MONO % (test code = 14.3 % 5905-5) EOS % (test code = 0.2 % 713-8) BASO % (test code = 0.2 % 706-2) GRAN MAT x10^3(ANC) 1.94 10*3/uL 1.88-7.09 (test code = 7252448855) IMM GRAN x10^3 (test <0.03 0-0.06 code = 3321716560) LYMPH x10^3 (test code 1.62 10*3/uL 1.32-3.29 = 731-0) MONO x10^3 (test code 0.60 10*3/uL 0.33-0.92 = 742-7) EOS x10^3 (test code = <0.03 0.03-0.39 L 711-2) BASO x10^3 (test code <0.03 0.01-0.07 = 704-7) Lab Interpretation Abnormal (test code = 14277-2) [facility] [id number] 23:39:41Impression: No acute cardiopulmonary abnormality. Preliminary Report Dictated by Resident: Richard Boudreaux MD., have reviewed this study and agree with the abovereport.Exam: XR CHEST1 VW History: chest pressure Comparison: None available Findings: The lungs are clear. No focal consolidation is present. No pleural effusionor pneumothorax is identified. The heart is normal in size. The osseous structures are unremarkable. [facility], Radiant Results Inft User - 04/04/2020 5:40 PM CSTExam: XR CHEST 1 VWHistory: chest pressure Comparison: None availableFindings:The lungs are clear. Nofocal consolidation is present. No pleural effusionor pneumothorax is identified. The heart is normal in size. The osseous structures are unremarkable.IMPRESSIONImpression:No acute cardiopulmonary abnormality.Preliminary Report Dictated by Resident: Anthony Hess, Richard Edmonds MD., have reviewedthis study and agree with the abovereport.[facility] GROUP A 2020-04-01 19:17:00 Test Item Value Reference Range Interpretation Comments Streptococcus pyogenes (group A) Negative Negative antigen (test code = 52044-8) Lab Interpretation (test code = Normal 29692-6) [facility],CLC OR [facility] ONLY - INFLUENZA A & B DIRECT [id number] 19:17:00 Test Item Value Reference Range Interpretation Comments Influenza A (test code = 26101-2) Negative Negative Influenza B (test code = 14593-8) Negative Negative Lab Interpretation (test code = Normal 57164-3) [facility]2020-12-16 19:04:00 Test Item Value Reference Range Interpretation Comments APPEARANCE (test code = Cloudy Clear A 8884415323) COLOR (test code = Yellow Yellow 9132066227) PH (test code = 4.8-8.0 4276871296) SP GRAVITY (test code = 1.003-1.030 H 5439307865) GLU U QUAL (test code = 500 mg/dL Normal A 0621513115) BLOOD (test code = 1+ Negative A 9409801646) KETONES (test code = 20 mg/dL Negative A 5781602715) PROTEIN (test code = 30 mg/dL Negative A 2887-8) UROBILIN (test code = 2.0 mg/dL Normal A 5582920089) BILIRUBIN (test code = Negative Negative 5723377675) NITRITE (test code = Negative Negative 9085417291) LEUK DAVID (test code = Negative Negative 0969396242) RBC/HPF (test code = See_Comment [Autom ated message] 1188091314) The system [employer] generated this result transmit osiris reference range : 0 - 3 HPF. The refe rence range was not u sed to interpret th is result as normal/abnormal . WBC/HPF (test code = See_Comment H [Autom ated message] 2606019130) The system [employer] generated this result transmit osiris reference range : 0 - 5 HPF. The refe rence range was not u sed to interpret th is result as normal/abnormal . BACTERIA (test code = Few Negative A 6653003356) SQ EPITH (test code = HPF 6295375388) Lab Interpretation (test Abnormal code = 52378-2) [facility] GLUCOSE (AUTOMATED)2020-04-01 18:54:00 Test Item Value Reference Range Interpretation Comments POCT GLU (test code = 8004615497) 270 mg/dL 70-110 H Lab Interpretation (test code = Abnormal 86230-8) [facility] GLUCOSE(AGE >30DAYS)2020-04-01 18:53:00 Test Item Value Reference Range Interpretation Comments POCT Glu (age>30days) (test code = 270 mg/dL 70-110 A 3342) Lab Interpretation (test code = Abnormal 43027-2) [facility] [id number] 18:43:00 Test Item Value Reference Range Interpretation Comments POCT PREG (test code = 1605) negative On board controls acceptable with present C Line (test code = 3574) POCT PREG LOT # (test code = 3575) [id number] POCT PREG TEST DATE (test 07/15/2021 code = 3576) Lab Interpretation (test code = Normal 67342-8) [facility]
--- NOTE | 2021-03-15 12:23 | ER ---
Nurse's Notes [facility] Name: Liya Diop Age: 35 yrs Sex: Female : 1985 Arrival Date: 03/15/2021 Time: 11:07 Bed Waiting Private MD: Diagnosis: Assessment: 03/15 11:40 Reassessment: Called to TRIAGE no answer. Unable to locate patient in ED lobby. 11:53 Reassessment: Called to triage, no answer. Unable to locate patient. ss 12:22 Reassessment: Called to triage no answer. ED Course: 11:07 Patient arrived in ED. mr Administered Medications: No medications were administered Outcome: 12:22 Eloped from waiting room, before seeing physician 12:22 Patient left the ED. Signatures: Nicky Jones Shelby, RN RN ss
== END 2021-03-15 12:22 | disposition left against medical advice (07) ==
LOC: ER 11:03
DX: Z53.21 Procedure and treatment not carried out due to patient leaving prior to being seen by health care provider (principal)

== ENCOUNTER 2024-03-23 13:33 | Emergency (ER) | payer OTHER ==
--- NOTE | 2024-03-23 14:25 | RAD REPORT ---
EXAM: Chest Single View HISTORY: cough, syncope COMPARISON: 09/27/2023 FINDINGS: LUNGS/PLEURA: The lungs are clear. No pleural effusions or pneumothorax. No pulmonary edema. MEDIASTINUM: The mediastinal silhouette is within normal limits. CARDIAC: The cardiac silhouette is within normal limits. UPPER ABDOMEN: No significant abnormality. BONES: No acute fracture. LINES/TUBES/OTHER: N/A IMPRESSION: No evidence of acute cardiopulmonary disease.
[2024-03-23 14:29] LABS: Absolute Basophils 0.1 K/uL (0-0.5); Absolute Eosinophils 0.2 K/uL (0-0.5); Absolute Lymphocytes (CBC) 2.6 K/uL (0.7-4.9); Absolute Monocytes 0.8 K/uL (0.1-1.3); Basophils % 0.7 % (0-1.3); Eosinophils % 2.5 % (0-4.4); Hematocrit 40.3 % (36.0-45.0); Hemoglobin 13.5 g/dL (12.0-15.0); Lymphocytes % 33.5 % (15.3-44.8); MCH 28.2 pg (27.0-35.0); MCHC 33.6 g/dL (32.0-36.0); MCV 83.9 fL (80-100); MPV 8.3 fL (7.6-11.3); Monocytes % 10.9 % (3.3-12.3); Neutrophils % 52.4 % (41.7-73.7); Nucleated Red Blood Cells % 0.1 % (0-0); Platelets 209 thou/uL (152-406); Red Cell Distribution Width 12.9 % (12.1-15.2)
[2024-03-23 14:36] LABS: PT Prothrombin Time 12.3 SECONDS (9.4-12.5); PTT, Activated Partial Thromb 29.3 SECONDS (24.3-36.9); Protime INR 1.1
[2024-03-23 14:47] LABS: ALT/SGPT 21 U/L (13-56); AST/SGOT 16 U/L (15-37); Albumin 3.1 g/dL (3.4-5.0); Albumin/Globulin Ratio 0.8 (1.1-1.8); Alkaline Phosphatase 74 U/L (45-117); Anion Gap 9.9 mEq/L (5.0-15.0); BUN Blood Urea Nitrogen 12 mg/dL (7-18); Bicarbonate 27 mEq/L (21-32); Bilirubin Direct < 0.2 mg/dL (0-0.2); Bilirubin Indirect, Calculated 0.2 mg/dL (0.2-0.8); Bilirubin Total 0.4 mg/dL (0.2-1.0); Glomerular Filtration Rate 125 ml/min (=/>90); Glucose Level 148 mg/dL (74-106); Magnesium 2.1 mg/dL (1.6-2.4); Potassium 3.9 mEq/L (3.5-5.1); Protein, Total 7.1 g/dL (6.4-8.2); Sodium Level 139 mEq/L (136-145)
--- NOTE | 2024-03-23 14:47 | RAD REPORT ---
EXAMINATION: CT HEAD WITHOUT CONTRAST CLINICAL INDICATION: Female, 38 years old.Dizziness;Syncope TECHNIQUE: Axial CT images from the skull base to the vertex without intravenous contrast. Coronal an d sagittal reformatted images were created from the data set. One or more of the following dose reduction techniques were used: Automated exposure control, adjustment of the mA and/or kV according to patient size, and/or iterative reconstruction. Unless otherwise specified, incidental findings do not require dedicated imaging follow-up. [id number]. COMPARISON: 05/27/2015 FINDINGS: INTRACRANIAL: No acute intracranial hemorrhage. No hydrocephalus. No mass effect or midline shift. No significant white matter disease. VASCULATURE: No visualized abnormalities in the arteries or dural venous sinuses. SCALP/SKULL: No significant soft tissue or osseous abnormalities. SINUSES: Partially opacified and circumferentially thickened right and left maxillary sinus. Right sp henoid sinus mucosal thickening is also present. IMPRESSION: No acute intracranial abnormality.
[2024-03-23 14:48] LABS: SARS-CoV-2 Antigen CONTROL BLUE LINE VIS/BG OK; SARS-CoV-2 Antigen Rapid Res Negative (Negative)
[2024-03-23 15:13] LABS: Specific Gravity > 1.030 (1.005-1.030); Sqamous Epithelial <5 /HPF (None Seen); Urine Bacteria None Seen /HPF (<20); Urine Bilirubin NEGATIVE (Negative); Urine Blood Trace (Negative); Urine Clarity Clear (Clear); Urine Color Light-Yellow (Yellow); Urine Culture Reflex Order NOT NEEDED; Urine Glucose 4+ (Over) (Negative); Urine Ketones 2+ (Negative); Urine Microscopic Reflex YN ORDER UMIC; Urine Nitrite NEGATIVE (Negative); Urine Protein TRACE (Negative); Urine Urobilinogen Normal (Normal)
--- NOTE | 2024-03-23 15:42 | EDPHYS ---
Physician Documentation [facility] Name: Liya Diop Age: 38 yrs Sex: Female : 1985 Arrival Date: 03/23/2024 Time: 13:33 Bed 8 Private MD: ED Physician Arun Severino HPI: 03/23 14:14 This 38 yrs old Female presents to ER via EMS with complaints of Syncope. rn 14:15 The patient has experienced near-syncope. Onset: The symptoms/episode began/occurred rn just prior to arrival. Associated injury: The patient did not suffer any apparent associated injury. Current symptoms: Currently, the patient is not experiencing any symptoms. The patient has not experienced similar symptoms in the past. Patient reports has been sick for the last few days, is the last of her family to get sick and this has been going through her house since . Reports chills, congestion, cough, myalgias and malaise. Was doing some unpacking and moving things around when felt lightheaded, tunnel vision and nearly passed out. Denies preceding chest pain. No pain anywhere. Feels back to normal right now except for nasal congestion.. Historical: - Allergies: 13:43 ceftriaxone; rs5 13:43 Naproxen; rs5 - PMHx: 13:43 Diabetes - IDDM; rs5 - PSHx: 13:43 None; rs5 - Immunization history:: Adult Immunizations up to date. - Infectious Disease History:: Denies. - Social history:: Smoking status: Patient denies any tobacco usage or history of. - Family history:: not pertinent. - Hospitalizations: : No recent hospitalization is reported. ROS: 14:15 Constitutional: Positive for chills Eyes: Negative for injury, pain, redness, and rn med surg, ENT: Positive for nasal congestion Neck: Negative for injury, pain, and swelling, Cardiovascular: Negative for chest pain, palpitations, and edema, Respiratory: Negative for shortness of breath, cough, wheezing, and pleuritic chest pain, Abdomen/GI: Negative for abdominal pain, nausea, vomiting, diarrhea, and constipation, Back: Negative for injury and pain, : Negative for injury, bleeding, discharge, and swelling, MS/Extremity: Negative for injury and deformity, Skin: Negative for injury, rash, and discoloration, Neuro: Positive for headache and generalized malaise Exam: 14:15 Constitutional: This is a well developed, well nourished patient who is awake, alert, rn and in no acute distress. Head/Face: Normocephalic, atraumatic. ENT: No stridor Cardiovascular: Regular rate and rhythm. No pulse deficits. Respiratory: No increased work of breathing, no retractions or nasal flaring. Abdomen/GI: Soft, non-tender, with normal bowel sounds. No distension or tympany. No guarding or rebound. No evidence of tenderness throughout. MS/ Extremity: Pulses equal, no cyanosis. Neurovascular intact. Full, normal range of motion. Equal circumference. Neuro: Awake and alert, GCS 15, oriented to person, place, time, and situation. Cranial nerves II-XII grossly intact. Motor strength 5/5 in all extremities. Sensory grossly intact. Cerebellar exam normal. 16:33 ECG was reviewed by the Attending Physician. rn Vital Signs: 13:41 BP 141 / 88; Pulse 98; Resp 17; Temp 98(O); Pulse Ox 99% ; rs5 14:43 BP 126 / 85; Pulse 94; Resp 18 S; Pulse Ox 99% on R/A; aa5 15:52 BP 122 / 81; Pulse 80; Resp 17; Pulse Ox 99% on R/A; rs5 MDM: 13:40 Medical Screening Exam initiated rn 16:32 Differential Diagnosis: cardiac arrhythmia, idiopathic syncope, vasovagal episode, rn Dehydration,. Data reviewed: vital signs, nurses notes, lab test result(s), radiologic studies, CT scan, and as a result, I will discharge patient. Counseling: I had a detailed discussion with the patient and/or guardian regarding the historical points, exam findings, and any diagnostic results supporting the discharge/admit diagnosis, lab results, radiology results, the need for outpatient follow up, to return to the emergency department if symptoms worsen or persist or if there are any questions or concerns that arise at home. Response to treatment: the patient's symptoms have markedly improved after treatment, the patient's symptoms have resolved after treatment, the patient's symptoms have worsened after treatment, the patient's condition has returned to base line, the patient is now symptom free, and as a result, I will discharge patient. Special discussion: I discussed with the patient/guardian in detail that at this point there is no indication for admission to the hospital. It is understood, however, that if the symptoms persist or worsen the patient needs to return immediately for re-evaluation. ED course: I have personally reviewed all of the results, including but not limited to blood tests and imaging deemed necessary to safely discharge this patient at this time. All results given to and printed out for patient. I personally went over all the results with the patient and answered all questions. Patient will follow-up with PCP and or specialist as discussed. Return precautions given and understood.. 03/23 13:56 Order name: Basic Metabolic Panel; Complete Time: 14:56 rn 03/23 13:56 Order name: CBC with Diff; Complete Time: 14:56 rn 03/23 13:56 Order name: Hepatic Function; Complete Time: 14:56 rn 03/23 13:56 Order name: Magnesium; Complete Time: 14:56 rn 03/23 13:56 Order name: Protime (+inr); Complete Time: 14:56 rn 03/23 13:56 Order name: Ptt, Activated; Complete Time: 14:56 rn 03/23 13:56 Order name: Troponin High Sensitivity; Complete Time: 14:56 rn 03/23 13:56 Order name: Urinalysis w/ reflexes; Complete Time: 15:19 rn 03/23 13:56 Order name: Flu; Complete Time: 14:56 rn 03/23 13:56 Order name: SARS RAPID; Complete Time: 14:56 rn 03/23 13:56 Order name: CT Head Brain wo Cont; Complete Time: 14:56 rn 03/23 13:56 Order name: Chest Single View XRAY; Complete Time: 14:56 rn 03/23 13:56 Order name: Cardiac monitoring; Complete Time: 14:39 rn 03/23 13:56 Order name: EKG - Nurse/Tech; Complete Time: 14:43 rn 03/23 13:56 Order name: IV Saline Lock; Complete Time: 14:15 rn 03/23 13:56 Order name: Labs collected and sent; Complete Time: 14:16 rn 03/23 13:56 Order name: NPO; Complete Time: 14:39 rn 03/23 13:56 Order name: O2 Per Protocol; Complete Time: 14:16 rn 03/23 13:56 Order name: O2 Sat Monitoring; Complete Time: 14:16 rn EC:33 Rate is 95 beats/min. Rhythm is regular. QRS [place] is Normal. MI interval is normal. QRS rn interval is normal. QT interval is normal. No Q waves. T waves are Normal. No ST changes noted. Clinical impression: Normal ECG. Interpreted by me. Reviewed by me. Administered Medications: 14:15 Not Given (given by EMs MEDICAL CASE WORKER): ns 0.9% 1000 ml IV at 1000 ml once; to be given as a iw bolus over 60 minutes Disposition Summary: 03/23/24 15:41 Discharge Ordered Notes: Location: Home rn Problem: new rn Symptoms: have improved rn Condition: Stable rn Diagnosis - Syncope rn Followup: rn - With: Private Physician - When: As needed - Reason: Recheck today's complaints, Re-evaluation by your physician Discharge Instructions: - Discharge Summary Sheet rn - Dehydration, Adult rn - Hyperglycemia rn - Syncope rn Forms: - Medication Reconciliation Form rn - Antibiotic litigation attorney associate - Prescription Opioid Use rn - Patient Portal Instructions rn - Leadership Thank You Letter rn Signatures: Dispatcher [employer] EDMS Arun Severino MD MD rn Sotelo, Ricky, RN RN rs5 Cindi Wilks RN iw Corrections: (The following items were deleted from the chart) 13:57 13:57 BASIC METABOLIC PANEL+C.LAB.BRZ ordered. EDMS EDMS 13:57 13:57 CBC+H.LAB.BRZ ordered. EDMS EDMS 13:57 13:57 HEPATIC FUNCTION+C.LAB.BRZ ordered. EDMS EDMS 13:57 13:57 MAGNESIUM+C.LAB.BRZ ordered. EDMS EDMS 13:57 13:57 PROTIME (+INR)+COAG.LAB.BRZ ordered. EDMS EDMS 13:57 13:57 PTT, ACTIVATED+COAG.LAB.BRZ ordered. EDMS EDMS 13:57 13:57 Troponin High Sensitivity+C.LAB.BRZ ordered. EDMS EDMS 13:57 13:57 Urinalysis+U.LAB.BRZ ordered. EDMS EDMS 13:57 13:57 Influenza Screen (A \T\ B)+BA.LAB.BRZ ordered. EDMS EDMS 13:57 13:57 SARS-COV-2 Antigen Rapid+I.LAB.BRZ ordered. EDMS EDMS 13:57 13:57 Head Brain Wo Cont+CT.RAD.BRZ ordered. EDMS EDMS 13:57 13:57 Chest Single View+RAD.RAD.BRZ ordered. EDMS EDMS
--- NOTE | 2024-03-23 15:42 | ER ---
Nurse's Notes [facility] Name: Liya Diop Age: 38 yrs Sex: Female : 1985 Arrival Date: 03/23/2024 Time: 13:33 Bed 8 Private MD: Diagnosis: Syncope Presentation: 03/23 13:41 Chief complaint: EMS states: Near syncopal episode when going from sitting to standing rs5 position, denies dizziness pain, SOB at this moment. Coronavirus screen: At this time, the client does not indicate any symptoms associated with coronavirus-19. Ebola Screen: No symptoms or risks identified at this time. Initial Sepsis Screen: Does the patient meet any 2 criteria? No. Patient's initial sepsis screen is negative. Does the patient have a suspected source of infection? No. Patient's initial sepsis screen is negative. Risk Assessment: Do you want to hurt yourself or someone else? Patient reports no desire to harm self or others. Onset of symptoms was March 23, 2024. 13:41 Method Of Arrival: EMS: [facility] rs5 13:41 Acuity: SUKHJINDER 3 rs5 14:16 Care prior to arrival: Medication(s) given: Normal saline infusion, 1000 mL, IV iw initiated. 20 GA, in the right antecubital area. Historical: - Allergies: 13:43 ceftriaxone; rs5 13:43 Naproxen; rs5 - PMHx: 13:43 Diabetes - IDDM; rs5 - PSHx: 13:43 None; rs5 - Immunization history:: Adult Immunizations up to date. - Infectious Disease History:: Denies. - Social history:: Smoking status: Patient denies any tobacco usage or history of. - Family history:: not pertinent. - Hospitalizations: : No recent hospitalization is reported. Screenin:19 [facility] ED Fall Risk Assessment (Adult) History of falling in the last 3 months, iw including since admission Yes- single mechanical fall (1 pt) Confusion or Disorientation No (0 pts) Intoxicated or Sedated No (0 pts) Impaired Gait No (0 pts) Mobility Assist Device Used No (0 pt) Altered Elimination No (0 pt) Score/Fall Risk Level 0 - 2 = Low Risk Oriented to surroundings, Maintained a safe environment. Abuse screen: Denies threats or abuse. Nutritional screening: No deficits noted. Tuberculosis screening: No symptoms or risk factors identified. Assessment: 14:00 General: Appears comfortable, Behavior is calm, cooperative, Denies any symptoms at aa5 this time. Pain: Denies pain. Neuro: Level of Consciousness is awake, alert, obeys commands, Oriented to person, place, time, situation. Cardiovascular: Heart tones S1 S2 present Rhythm is sinus rhythm. Respiratory: Airway is patent Respiratory effort is even, unlabored, Respiratory pattern is regular, symmetrical. GI: No signs and/or symptoms were reported involving the gastrointestinal system. : No signs and/or symptoms were reported regarding the genitourinary system. EENT: No signs and/or symptoms were reported regarding the EENT system. Derm: Skin is pink, warm \T\ dry. Musculoskeletal: Range of motion: intact in all extremities. 14:19 General: Appears in no apparent distress. Behavior is calm, cooperative. Neuro: Level iw of Consciousness is awake, alert, obeys commands, Oriented to person, place, time, situation, Moves all extremities. Full function. Cardiovascular: Patient's skin is warm and dry. Respiratory: Respiratory effort is even, unlabored, Respiratory pattern is regular, symmetrical. Derm: Skin is intact, is healthy with good turgor. Musculoskeletal: Range of motion: intact in all extremities. 14:57 Reassessment: Patient is alert, oriented x 3, equal unlabored respirations, skin aa5 warm/dry/pink. Urine collected and sent to lab. Pt was assisted to restroom via wheelchair, now back in bed. . 15:51 Reassessment: Patient and/or family updated on plan of care and expected duration. Pain rs5 level reassessed. Patient is alert, oriented x 3, equal unlabored respirations, skin warm/dry/pink. Vital Signs: 13:41 BP 141 / 88; Pulse 98; Resp 17; Temp 98(O); Pulse Ox 99% ; rs5 14:43 BP 126 / 85; Pulse 94; Resp 18 S; Pulse Ox 99% on R/A; aa5 15:52 BP 122 / 81; Pulse 80; Resp 17; Pulse Ox 99% on R/A; rs5 ED Course: 13:39 Patient arrived in ED. rs5 13:40 Arun Severino MD is Attending Physician. rn 13:43 Triage completed. rs5 14:00 Arm band placed on. aa5 14:00 Patient has correct armband on for positive identification. Placed in gown. Bed in low aa5 position. Call light in reach. Side rails up X2. Client placed on continuous cardiac and pulse oximetry monitoring. NIBP monitoring applied. court recording monitor on. Pulse ox on. NIBP on. 14:15 Flu Sent. iw 14:16 Initial lab(s) drawn, by me, sent to lab. Maintain EMS IV. Dressing intact. Good blood iw return noted. Site clean \T\ dry. Gauge \T\ site: 20 RAC. Flushed with 10 mL NS. 14:18 Chest Single View XRAY In Process Unspecified. EDMS 14:34 CT Head Brain wo Cont In Process Unspecified. EDMS 14:39 Georgie Robles, RN is Primary Nurse. aa5 15:52 No provider procedures requiring assistance completed. IV discontinued, intact, rs5 bleeding controlled, No redness/swelling at site. Pressure dressing applied. 15:52 Provided Education on: discharge instructions . rs5 Administered Medications: 14:15 Not Given (given by EMs DUMPSTER DRIVER): ns 0.9% 1000 ml IV at 1000 ml once; to be given as a iw bolus over 60 minutes Medication: 14:19 VIS not applicable for this client. iw Outcome: 15:41 Discharge ordered by . rn 15:52 Discharged to home ambulatory, rs5 15:52 Condition: stable 15:52 Discharge instructions given to patient, family, Instructed on discharge instructions, follow up and referral plans. Demonstrated understanding of instructions, follow-up care, 15:53 Patient left the ED. rs5 Signatures: Dispatcher [employer] EDCindi Mitchell RN RN iw Arnu Severino MD MD rn Calderon, Audri, RN RN aa5 Antonio Kingsley RN RN rs5 Corrections: (The following items were deleted from the chart) 15:00 14:16 Arm band placed on iw aa5
[2024-03-23 16:17] VITALS: TEMP 98; O2SAT 99
[2024-03-23 16:19] VITALS: BP 122/81
== END 2024-03-23 15:53 | disposition home or self-care (01) ==
LOC: ER 13:33
DX: R55 Syncope and collapse (principal); E11.9 Type 2 diabetes mellitus without complications; Z11.52 Encounter for screening for COVID-19
CPT/HCPCS: 36415; 70450; 71045; 80048; 80076; 81001; 83735; 84484; 85025; 85610; 85730; 87804; 87811; 99284

== ENCOUNTER 2024-06-26 20:44 | Emergency (ER) | payer OTHER ==
[2024-06-26] MEDS ORDERED: HYDROCODONE/APAP 5/325 MG TAB ONE (21:21)
[2024-06-26] MEDS ORDERED: DIAZEPAM 5 MG TABLET ONE (21:21)
[2024-06-26] MEDS ORDERED: KETOROLAC 30 MG/ML INJ ONE (22:55)
--- NOTE | 2024-06-26 22:58 | RAD REPORT ---
EXAMINATION: ONE VIEW CHEST XR CLINICAL INDICATION: Female, 39 years old.,PAIN TECHNIQUE: Frontal chest projection is submitted. Examination is limited by patient positioning and t echnique. COMPARISON: 03/23/2024 FINDINGS: The lungs are well inflated and clear. No pneumothorax or sizable effusion. The heart is normal in s ize. Mediastinal contours are unremarkable. IMPRESSION: No acute intrathoracic abnormalities.
--- NOTE | 2024-06-26 22:59 | RAD REPORT ---
EXAMINATION: XR Ribs Right INDICATION: PAIN COMPARISON: Same date chest radiograph TECHNIQUE: Frontal and multiple oblique views of the right rib cage. FINDINGS: Included portions of the chest reveal clear lungs. There is no effusion or pneumothorax. Mediastinal contours are within normal limits. No displaced rib fracture is identified. No suspicious focal osseous lesion.. IMPRESSION: No acute fractures are identified radiographically..
--- NOTE | 2024-06-26 23:12 | ER ---
Nurse's Notes [facility] Name: Liya Diop Age: 39 yrs Sex: Female : 1985 Arrival Date: 06/26/2024 Time: 20:44 Bed 14 Private MD: Diagnosis: Chest pain on breathing Presentation: 06/26 20:58 Chief complaint: Patient states: states was getting adjusted by chiropractor today and al5 when the adjustment occurred, patient experienced a severe sharp pain in her R side ribs. Coronavirus screen: At this time, the client does not indicate any symptoms associated with coronavirus-19. Ebola Screen: No symptoms or risks identified at this time. Initial Sepsis Screen: Does the patient meet any 2 criteria? HR > 90 bpm. No. Patient's initial sepsis screen is negative. Does the patient have a suspected source of infection? No. Patient's initial sepsis screen is negative. Risk Assessment: Do you want to hurt yourself or someone else? Patient reports no desire to harm self or others. Onset of symptoms was June 26, 2024. 20:58 Method Of Arrival: Wheelchair al5 20:58 Acuity: SUKHJINDER 3 al5 Triage Assessment: 21:00 General: Appears in no apparent distress. uncomfortable, well groomed, well developed, al5 Behavior is cooperative. Pain: Complains of pain in right seventh rib, right eighth rib, right ninth rib and right tenth rib Pain currently is 10 out of 10 on a pain scale. EENT: No signs and/or symptoms were reported regarding the EENT system. Neuro: Level of Consciousness is awake, alert, obeys commands, Oriented to person, place, time, situation. Cardiovascular: Capillary refill < 3 seconds Patient's skin is warm and dry. Respiratory: Airway is patent Respiratory effort is even, unlabored, Respiratory pattern is regular, symmetrical. GI: No signs and/or symptoms were reported involving the gastrointestinal system. : No signs and/or symptoms were reported regarding the genitourinary system. Derm: Skin is intact, is healthy with good turgor, Skin is pink, warm \T\ dry. normal. Musculoskeletal: Reports pain in right seventh rib, right eighth rib, right ninth rib and right tenth rib Pain is 10 out of 10 on a pain scale. 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 - Infectious Disease History:: Denies. - Social history:: Smoking status: Patient denies any tobacco usage or history of. Screenin:09 [facility] ED Fall Risk Assessment (Adult) History of falling in the last 3 months, rg5 including since admission No falls in past 3 months (0 pts) Confusion or Disorientation No (0 pts) Intoxicated or Sedated No (0 pts) Impaired Gait No (0 pts) Mobility Assist Device Used No (0 pt) Altered Elimination No (0 pt) Score/Fall Risk Level 0 - 2 = Low Risk Oriented to surroundings, Maintained a safe environment, Provided non-skid footwear, Hourly rounding (assess needs \T\ fall precautionary measures) done. Abuse screen: Denies threats or abuse. Nutritional screening: No deficits noted. Tuberculosis screening: No symptoms or risk factors identified. Assessment: 21:00 General: Appears in no apparent distress. uncomfortable, Behavior is calm, cooperative, rg5 appropriate for age. Neuro: Level of Consciousness is awake, alert, obeys commands, Oriented to person, place, time, situation. 21:00 Cardiovascular: Capillary refill < 3 seconds Patient's skin is warm and dry. rg5 Respiratory: Airway is patent Trachea midline Respiratory effort is even, relaxed, Respiratory pattern is regular, symmetrical. GI: Abdomen is round non-distended. : No signs and/or symptoms were reported regarding the genitourinary system. EENT: No deficits noted. Derm: Skin is intact, Skin is dry, Skin is normal, Skin temperature is warm. Musculoskeletal: Circulation, motion, and sensation intact. Range of motion: intact in all extremities. 21:10 Pain: Complains of pain in diaphragm and right rib. rg5 22:00 Reassessment: Patient and/or family updated on plan of care and expected duration. Pain rg5 level reassessed. Patient is alert, oriented x 3, equal unlabored respirations, skin warm/dry/pink. Patient states symptoms have improved. 23:00 Reassessment: Patient and/or family updated on plan of care and expected duration. Pain rg5 level reassessed. Patient is alert, oriented x 3, equal unlabored respirations, skin warm/dry/pink. Patient states feeling better. Vital Signs: 20:58 BP 166 / 94; Pulse 101; Resp 18; Temp 98.1; Pulse Ox 100% on R/A; Weight 104.33 kg; al5 Height 5 ft. 6 in. ; Pain 10/10; 21:04 BP 154 / 86; Pulse 98; Resp 18; Pulse Ox 100% on R/A; Pain 10/10; rg5 22:00 BP 141 / 87; Pulse 99; Resp 18; Pulse Ox 100% ; Pain 5/10; rg5 23:00 BP 131 / 81; Pulse 90; Resp 17; Pulse Ox 99% on R/A; Pain 3/10; rg5 20:58 Body Mass Index 37.12 (104.33 kg, 167.64 cm) al5 20:58 Pain Scale: Adult al5 21:04 Pain Scale: Adult rg5 22:00 Pain Scale: Adult rg5 23:00 Pain Scale: Adult rg5 ED Course: 20:46 Patient arrived in ED. jj6 20:47 Wanda Hager FNP-C [facility]. kb 20:47 Bob Max MD is Attending Physician. kb 20:59 Triage completed. al5 21:01 Arm band placed on right wrist. Patient placed in the treatment room, in view of staff al5 members, on pulse oximetry. 21:04 Jsoe Davis, BALJEET is Primary Nurse. rg5 21:09 Patient has correct armband on for positive identification. Door closed. Noise rg5 minimized. 21:09 No provider procedures requiring assistance completed. Patient did not have IV access rg5 during this emergency room visit. 21:50 Chest Single View XRAY In Process Unspecified. EDMS 21:50 Ribs Right XRAY In Process Unspecified. EDMS 23:33 Provided Education on: POST ER CARE. rg5 Administered Medications: 21:23 Drug: HYDROcodone-acetaminophen PO 5 mg-325 mg 1 tabs PO once Route: PO; rg5 21:57 Follow up: Response: No adverse reaction; Pain is decreased rg5 21:23 Drug: Diazepam PO 5 mg PO once Route: PO; rg5 21:57 Follow up: Response: No adverse reaction rg5 22:58 Drug: Ketorolac IM 30 mg IM once Route: IM; Site: right deltoid; rg5 23:33 Follow up: Response: No adverse reaction; Pain is decreased rg5 Medication: 21:12 VIS not applicable for this client. rg5 Outcome: 23:11 Discharge ordered by MD. solomon 23:32 Discharged to home ambulatory, rg5 23:32 Condition: stable 23:32 Discharge instructions given to patient, Instructed on discharge instructions, follow rg5 up and referral plans. Demonstrated understanding of instructions, follow-up care, medications, Prescriptions given X 2, 23:34 Patient left the ED. rg5 Signatures: Dispatcher [employer] EDWanda Staley, JEEVAN BOGGSP-Leslie Meza jj6 Jose Davis RN RN rg5 Venus Valerio RN RN al5
--- NOTE | 2024-06-26 23:12 | EDPHYS ---
Physician Documentation [facility] Name: Liya Diop Age: 39 yrs Sex: Female : 1985 Arrival Date: 06/26/2024 Time: 20:44 Bed 14 Private MD: ED Physician Bob Max HPI: 06/26 23:07 This 39 yrs old Female presents to ER via Wheelchair with complaints of RIB kb INJURY. 23:07 Pt is a 39 year old female who presents for right anterior rib pain after getting an kb adjustment by chiropractor today. States the pain started suddenly after upper back was adjusted. States pain is worse with movement and breathing. . 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 - Infectious Disease History:: Denies. - Social history:: Smoking status: Patient denies any tobacco usage or history of. ROS: 23:06 Constitutional: As per HPI kb Exam: 23:06 Constitutional: This is a well developed, well nourished patient who is awake, alert, kb and in no acute distress. Head/Face: Normocephalic, atraumatic. ENT: Moist Mucous membranes Neck: Trachea midline and no cervical lymphadenopathy. Supple, full range of motion without nuchal rigidity, or vertebral point tenderness. No Meningismus. Cardiovascular: Regular rate Respiratory: Respirations even and unlabored. No increased work of breathing. Talking in full sentences Back: No spinal tenderness. No costovertebral tenderness. Full range of motion. Skin: Warm, dry with normal turgor. Normal color. MS/ Extremity: Pulses equal, no cyanosis. Neurovascular intact. Full, normal range of motion. Neuro: Awake and alert, GCS 15, oriented to person, place, time, and situation. 23:06 Chest/axilla: Inspection: normal, Palpation: tenderness, that is mild, of the right kb breast, that totally reproduces the patient's complaints, Vital Signs: 20:58 BP 166 / 94; Pulse 101; Resp 18; Temp 98.1; Pulse Ox 100% on R/A; Weight 104.33 kg; al5 Height 5 ft. 6 in. ; Pain 10/10; 21:04 BP 154 / 86; Pulse 98; Resp 18; Pulse Ox 100% on R/A; Pain 10/10; rg5 22:00 BP 141 / 87; Pulse 99; Resp 18; Pulse Ox 100% ; Pain 5/10; rg5 23:00 BP 131 / 81; Pulse 90; Resp 17; Pulse Ox 99% on R/A; Pain 3/10; rg5 20:58 Body Mass Index 37.12 (104.33 kg, 167.64 cm) al5 20:58 Pain Scale: Adult al5 21:04 Pain Scale: Adult rg5 22:00 Pain Scale: Adult rg5 23:00 Pain Scale: Adult rg5 MDM: 20:47 Medical Screening Exam initiated kb 23:07 Differential diagnosis: rib fracture, contusion, dislocation, pneumothorax. Data kb reviewed: vital signs, nurses notes. Counseling: I had a detailed discussion with the patient and/or guardian regarding the historical points, exam findings, and any diagnostic results supporting the discharge/admit diagnosis, radiology results, the need for outpatient follow up, a family practitioner, to return to the emergency department if symptoms worsen or persist or if there are any questions or concerns that arise at home. 06/26 21:14 Order name: Chest Single View XRAY; Complete Time: 23:02 kb 03 21:14 Order name: Ribs Right XRAY; Complete Time: 23:02 kb Administered Medications: 21:23 Drug: HYDROcodone-acetaminophen PO 5 mg-325 mg 1 tabs PO once Route: PO; rg5 21:57 Follow up: Response: No adverse reaction; Pain is decreased rg5 21:23 Drug: Diazepam PO 5 mg PO once Route: PO; rg5 21:57 Follow up: Response: No adverse reaction rg5 22:58 Drug: Ketorolac IM 30 mg IM once Route: IM; Site: right deltoid; rg5 23:33 Follow up: Response: No adverse reaction; Pain is decreased rg5 Disposition: 06/27 03:23 Co-signature as Attending Physician, Bob Max MD I agree with the assessment sp4 and plan of care. I reviewed the patient's care provided by the Advanced Practice Provider and agree with the diagnosis and treatment plan. Disposition Summary: 06/26/24 23:11 Discharge Ordered Notes: Location: Home Condition: Stable kb Diagnosis - Chest pain on breathing kb Followup: kb - With: Emergency Department - When: As needed - Reason: Worsening of condition Followup: kb - With: Private Physician - When: 2 - 3 days - Reason: Recheck today's complaints, Continuance of care, Re-evaluation by your physician Discharge Instructions: - Discharge Summary Sheet kb - Chest Wall Pain, [id number] kb - Rib Fracture, [id number] kb Forms: - Medication Reconciliation Form kb - Antibiotic Education kb - Prescription Opioid Use kb - Patient Portal Instructions kb - Leadership Thank You Letter kb Prescriptions: - Tramadol 50 mg Oral Tablet - take 1 tablet ORAL route every 8 hours as needed; 12 tablet; Refills: 0, kb Product Selection Permitted - orphenadrine citrate 100 mg Oral Tablet Sustained Release - take 1 tablet ORAL route 2 times per day As needed; 20 tablet; Refills: 0, kb Product Selection Permitted Signatures: Dispatcher [employer] EDMS Wanda Hager, PATCHER HELPER-C PATCHER HELPER-Bob Espinoza MD MD sp4 Jose Davis RN RN rg5 Venus Valerio RN RN al5 Corrections: (The following items were deleted from the chart) 06/26 23:07 23:06 Head/Face: Normocephalic, atraumatic. kb kb
[2024-06-26 23:56] VITALS: TEMP 98.1
[2024-06-27 00:15] VITALS: BP 131/81; O2SAT 99
== END 2024-06-26 23:34 | disposition home or self-care (01) ==
LOC: ER 20:44
DX: R07.1 Chest pain on breathing (principal)
CPT/HCPCS: 71045; 96372; 99284